=== PATIENT | female | born 1965 | race Caucasian/White ===

== ENCOUNTER → 2019-12-03 15:11 | Outpatient (CLI) | payer OTHER, SELFPAY ==
--- NOTE | ~2019-12-03 | MM_ITS ---
EXAMINATION: MM screening anant BI w asge HISTORY: Screening mammogram, family history of breast cancer in her mother. TECHNIQUE: Craniocaudal and mediolateral oblique 3-D tomosynthesis images were obtained and synthetic 2-D images were generated. CAD analysis was submitted and interpreted. COMPARISON: 06/23/2018, 05/05/2017, 04/09/2016, 04/07/2015 BREAST PARENCHYMAL COMPOSITION: There are scattered areas of fibroglandular density. FINDINGS: There is no evidence of suspicious mass, calcification, or architectural distortion to sugg est malignancy in either breast. There has been no suspicious interval change. IMPRESSION: 1. No mammographic evidence of malignancy. 2. Recommend routine screening mammography in one year. BI-RADS Category 1: Negative Reviewed, dictated and finalized at location A.
== END ==
PROVIDERS: Visit Provider Nurse Practitioner
DX: Z12.31 Encounter for screening mammogram for malignant neoplasm of breast (principal)
CPT/HCPCS: 77063; 77067

== ENCOUNTER → 2020-11-13 11:47 | Outpatient (CLI) | payer OTHER, SELFPAY ==
--- NOTE | ~2020-11-13 | US_ITS ---
EXAMINATION: US transvaginal DATE: 11/13/2020 12:22 INDICATION: Postmenopausal bleeding Comparison:Postmenopausal bleeding. Abnormal uterine bleeding. TECHNIQUE: Multiple endovaginal sonographic images of the pelvis performed. FINDINGS: The uterus measures 7.2 x 3.7 x 4.7 cm. No discrete masses. The endometrial complex measure s 3 mm. The right ovary measures 2.1 x 1.8 x 2.2 cm and the left ovary is not visualized. No free fluid in th e pelvis. There is no free fluid in the pelvis. There are no abnormal masses seen on either side. IMPRESSION: 1. Unremarkable pelvic ultrasound. Reviewed, dictated and finalized at location A.
== END ==
PROVIDERS: Visit Provider Nurse Practitioner
DX: N95.0 Postmenopausal bleeding (principal)
CPT/HCPCS: 76830

== ENCOUNTER → 2020-12-03 16:46 | Outpatient (CLI) | payer OTHER, SELFPAY ==
--- NOTE | ~2020-12-03 | MM_ITS ---
EXAMINATION: MM screening anant BI w sage HISTORY: Screening mammogram TECHNIQUE: Craniocaudal and mediolateral oblique 3-D tomosynthesis images were obtained and synthetic 2-D images were generated. CAD analysis was submitted and interpreted. COMPARISON: 12/03/2019, 06/23/2018, 05/05/2017 bilateral digital screening mammogram examinations BREAST PARENCHYMAL COMPOSITION: There are scattered areas of fibroglandular density. FINDINGS: There is no evidence of suspicious mass, calcification, or architectural distortion to sugg est malignancy in either breast. There has been no suspicious interval change. IMPRESSION: 1. No mammographic evidence of malignancy. 2. Recommend routine screening mammography in one year. BI-RADS Category 1: Negative Reviewed, dictated and finalized at location A.
== END ==
PROVIDERS: Visit Provider Nurse Practitioner
DX: Z12.31 Encounter for screening mammogram for malignant neoplasm of breast (principal)
CPT/HCPCS: 77063; 77067

== ENCOUNTER 2021-06-19 11:19 | Emergency (ER) | payer OTHER, SELFPAY ==
--- NOTE | ~2021-06-19 | CT_ITS ---
EXAMINATION: CT abdomen pelvis w con EXAM DATE: 06/19/2021 13:56 INDICATION: RUQ abdominal pain . TECHNIQUE: Spiral CT of the abdomen and pelvis was performed following intravenous injection of 100 m L Omnipaque 350. Axial, coronal and sagittal images of the abdomen and pelvis were reviewed. The do se-length product (DLP) for this examination was 989.58 mGy-cm. The exposure was tailored according to patient size (auto mA exposure control), and iterative reconstruction (ASIR) was used as additiona l dose reduction technique. There is no prior study for comparison. FINDINGS: There is a right UPJ 5 mm stone, mild obstructive nephropathy. Some enhancement of the urot helium, could indicate upper urinary tract infection. Mildly delayed right-sided nephrogram compared to the contralateral side. Punctate left inferior calyceal stone. The liver, spleen, adrenal glands and pancreas are unremarkable. Gallbladder is unremarkable. No biliary obstruction. The uterus is unremarkable. The bladder is unremarkable. There is no retroperitoneal or pelvic lymphadenopathy. The appendix is normal. The stomach and small bowel are unremarkable. There is expected amount of c olonic stool. No free intraperitoneal gas. The heart is normal in size. There are no pericardial or pleural effusions. The lung bases are unremarkable. There are no osteoblastic or osteolytic les ions identified. IMPRESSION: 1. Right UPJ 5 mm stone, mild obstructive nephropathy and possible upper UTI. 2. Punctate left nephrolithiasis. Reviewed, dictated and finalized at location B. CLINICAL DOCUMENTATION SPECIALIST
[2021-06-19 11:23] VITALS: BP 137/55; PULSE 73; RESP 18; TEMP 36.7; O2SAT 99
[2021-06-19 11:43] LABS: Basophils Percent Auto 0.6 % (0.2-1.2); Eosinophils Absolute Auto 0.1 K/mm3 (0-0.3); Hematocrit 41.5 % (37.0-47.0); Hemoglobin 14.5 g/dL (12.0-15.0); Immature Granulocyte Absolute 0.02 K/mm3 (0.00-0.031); Immature Granulocyte Percent A 0.3 % (0-0.5); Lymphocytes Absolute Auto 2.54 K/mm3 (0.9-3.2); Lymphocytes Percent Auto 36.8 % (18.3-44.2); Mean Corpuscular HGB Conc 34.9 g/dl (32-36); Mean Corpuscular Hemoglobin 30.3 pg (26-34); Mean Corpuscular Volume 86.8 fl (80-100); Mean Platelet Volume 8.8 fl (7.4-10.4); Monocytes Absolute Auto 0.6 K/mm3 (0.1-0.6); Neutrophils Absolute Auto 3.7 K/mm3 (1.3-6.7); Neutrophils Percent Auto 53.3 % (45.5-73.1); Platelet Count Result 228 k/mm3 (150-375); Red Blood Count 4.78 M/mm3 (4.2-5.4); White Blood Count 6.9 K/mm3 (4.5-10.0)
[2021-06-19 11:55] LABS: Alanine Aminotransferase 42 U/L (4-35); Albumin Level 4.4 g/dL (3.5-5.1); Alkaline Phosphatase 119 U/L (38-126); Anion Gap 9 mmol/L (8-16); Aspartate Amino Transferase 37 U/L (14-36); Bilirubin,Total 1.1 mg/dL (0.2-1.3); Blood Urea Nitrogen 12 mg/dL (7-17); Carbon Dioxide 26 mmol/L (22-30); Chloride 102 mmol/L (98-107); Estimated CRCL calculation 81 ml/min; Estimated Glomerular Filt Rate > 60; Glucose 128 mg/dL (65-110); Lipase 41 U/L (23-300); Potassium 3.9 mmol/L (3.4-5.0); Sodium 137 mmol/L (137-145)
--- NOTE | 2021-06-19 12:00 | ED.ABDPAIN ---
HPI - Abdominal Pain General Chief Complaint: Abdominal Pain Stated Complaint: RLQ pain that wraps around to back Source: patient, family and RN notes reviewed Limitations: no limitations History of Present Illness HPI narrative: 56-year-old female presents to the emergency department for evaluation of right upper quadrant and right lower quadrant with back pain. Patient states symptoms started this morning. Patient does report associated nausea. Patient denies any associated chest pain or shortness of breath. Patient denies any prior history of gallbladder disease. Patient denies any cardiac history. Patient denies any previous history of kidney stones. Related Data Allergies Allergy/AdvReac Type Severity Reaction Status Date / Time No Known Allergies Allergy Unverified 02/22/19 10:26 Review of Systems Review of Systems: CONSTITUTIONAL: Denies fever, chills, or sweats. EYES: Denies visual changes, redness, or discharge. ENT: Denies rhinorrhea, congestion, sore throat, or otalgia. CARDIOVASCULAR: Denies chest pain, palpitations, or edema. RESPIRATORY: Denies cough or dyspnea. GASTROINTESTINAL: Right-sided abdominal pain that radiates to right flank. Patient does report associated nausea GENITOURINARY: Hematuria SKIN: Denies rash or itching. MUSCULOSKELETAL: Right flank pain Exam Narrative: APPEARANCE: Restless due to pain HEAD: normocephalic, atraumatic. EYES: PERRLA/EOMI, conjunctivae clear. NECK: Supple. No adenopathy, no masses. RESPIRATORY: Airway patent, respirations nonlabored. Clear to auscultation bilaterally, no rales, rhonchi, wheezing. CARDIOVASCULAR: Regular rate and rhythm without murmurs rubs or gallops. ABDOMINAL: Some right-sided abdominal pain, right CVA tenderness to palpation, normal bowel sounds, otherwise benign abdomen MUSCULOSKELETAL: Moves all extremities. Strength/ROM intact, No edema, No calf tenderness. SKIN: Warm, dry. Normal Color Course Course Emergency Course: Medications were ordered to help provide the patient some comfort from her pain and nausea. On reevaluation patient states that she feels significantly improved. Patient is no longer in any distress. Patient was updated on the results of her CT scan. Patient was also updated on the results of her labs and on the discussion with urology. Patient was comfortable with the plan for discharge to home and close follow-up with urology. Consultations Consultation #1: I discussed the case with Dr. Bacon for urology and he was comfortable discharging the patient to home. He felt with the patient having no leukocytosis and a normal UA was comforting enough that she does not have a infected stone. Narcotic pain medication along with Flomax. Also advised against any NSAIDs. Patient will have follow-up in his office early next week. I discussed this with the patient and patient is currently resting comfortably. Patient and are both comfortable with the plan for discharged home. They were educated on reasons to return to the emergency room. Vital Signs Vital signs: Vital Signs Temperature 98.1 F 06/19/21 11:23 Pulse Rate 73 06/19/21 11:23 Respiratory Rate 18 06/19/21 11:23 Blood Pressure 137/55 L 06/19/21 11:23 Pulse Oximetry 99 06/19/21 11:23 Temperature 98.1 F 06/19/21 11:23 Pulse Rate 83 06/19/21 16:02 Respiratory Rate 16 06/19/21 16:02 Blood Pressure 146/80 H 06/19/21 16:02 Pulse Oximetry 97 06/19/21 16:02 MDM - Abdominal Pain Differential Diagnosis Differential diagnosis: Likely abdominal pain, calculus of kidney and diverticulitis Lab Data Attestation: I reviewed the patient's lab results. Result diagrams: 06/19/21 11:36 06/19/21 11:36 Labs: Lab Results 06/19/21 06/19/21 06/19/21 Range/Units 11:36 11:36 12:27 WBC 6.9 (4.5-10.0) K/mm3 RBC 4.78 (4.2-5.4) M/mm3 Hgb 14.5 (12.0-15.0) g/dL Hct 41.5 (37.0-47.0) % MCV 86.8 (80-100) f
[2021-06-19] MEDS: SODIUM CHLORIDE 0.9% IV 1,000 ML 999 ML IV CONT (12:15)
[2021-06-19] MEDS: HYDROmorphone HCL INJ (*CRX) 1 MG/ML SYR 0.5 MG IV PUSH (12:15)
[2021-06-19] MEDS: ONDANSETRON INJ 4 MG/2 ML VIAL IV PUSH (12:15)
[2021-06-19 12:47] LABS: Add Urine Microscopic? YES; Appearance Urine Cloudy (Clear); Bilirubin Urine Negative (Negative); Blood Urine 3+ (Negative); Color Urine Amber (Yellow); Glucose Urine UA Negative (Negative); Ketones Urine Trace mg/dL (Negative); Leukocyte Esterase Ur Negative LEU/UL (Negative); Mucus Urine Heavy /lpf; Nitrate Urine Negative (Negative); Protein Urine 1+ mg/dL (Negative); RBC Urine >75 /hpf (0-2); Specific Grav Ur 1.017 (1.001-1.035); Squamous Epithelial Cell Urine Occasional /hpf (Few); Urobilinogen Urine Negative mg/dL (<2.0)
[2021-06-19 14:18] VITALS: BP 160/85; PULSE 90; RESP 18; O2SAT 100
[2021-06-19 16:02] VITALS: BP 146/80; PULSE 83; RESP 16; O2SAT 97
--- NOTE | 2021-06-29 19:12 | PC.NURSE ---
LATE ENTRY This note is being entered to document information to the patient's record. The following information was omitted on [06/19/21], by [Charlette Texieira]. Rocephin administered and finished infusing at 1519.
== END 2021-06-19 16:06 | disposition home or self-care (01) ==
PROVIDERS: Emergency Provider Emergency Medicine
DX: N13.8 Other obstructive and reflux uropathy (principal); N20.2 Calculus of kidney with calculus of ureter
CPT/HCPCS: 36415; 51701; 74177; 80053; 81001; 81025; 83690; 85025; 87086; 96361; 96365; 96375; 99284; J0696; J1170; J2405; J7030; Q9967

== ENCOUNTER 2021-06-24 12:07 | Outpatient (CLI) | payer OTHER, SELFPAY ==
--- NOTE | ~2021-06-24 | XR_ITS ---
XR abdomen/kub 1V 06/24/2021 12:59 INDICATION: Right ureteral stone TECHNIQUE: KUB COMPARISON: CT dated 06/19/2021 FINDINGS: Bowel gas pattern is normal. There is no evidence of free air, mass, organomegaly, ascites or obstruction. There are stones in the right abdomen at the L3 level, presumably in the ureter. The bones appear intact. IMPRESSION: 1: Persistent right proximal ureteral stones at the L3 level.. Reviewed, dictated and finalized at location B. TIENT NURSING AIDE
== END 2021-06-24 12:08 | disposition home or self-care (01) ==
PROVIDERS: Visit Provider Nurse Practitioner Adult Health
DX: N20.1 Calculus of ureter (principal)
CPT/HCPCS: 74018

== ENCOUNTER 2021-06-28 23:03 | Emergency (ER) | payer OTHER, SELFPAY ==
--- NOTE | ~2021-06-28 | CT_ITS ---
EXAMINATION: CT abdomen pelvis wo con DATE: 06/29/2021 00:40 INDICATION: Abdominal pain. Right ureteral stone. TECHNIQUE: Computed tomography (CT) of the abdomen and pelvis was performed without intravenous contr ast. Automated exposure control and iterative reconstruction technique were employed. The dose-length product was 454.87 mGy-cm. COMPARISON: CT abdomen and pelvis 06/19/2021 FINDINGS: The visualized portions of the lung bases demonstrate mild atelectasis. No pleural effusion . The heart size is normal. No pericardial effusion. There is a small sliding hiatal hernia. There is diffuse hepatic steatosis. The gallbladder, spleen, pancreas, and adrenal glands are normal. There i s mild right hydronephrosis and hydroureter. There is a 4 mm stone at right ureterovesicular junction . There is a 2 mm stone in left kidney. There are no dilated loops of bowel. The appendix is normal. There are no pathologically enlarged lymph nodes. There is no free intraperitoneal fluid. There is se nighat lumbar spondylosis. IMPRESSION: 1. 4 mm stone at right ureterovesicular junction with mild right hydronephrosis and hydroureter. 2. 2 mm nonobstructing stone in left kidney. Reviewed, dictated and finalized at location A. TOP LINER HELPER IMPRESSION: 1. 4 mm stone at right ureterovesicular junction with mild right hydronephrosi s and hydroureter. 2. 2 mm nonobstructing stone in left kidney.
[2021-06-28 23:05] VITALS: BP 153/81; PULSE 98; RESP 20; TEMP 36.2; O2SAT 98
--- NOTE | 2021-06-28 23:51 | ED.ABDPAIN ---
HPI - Abdominal Pain General Chief Complaint: Abdominal Pain Stated Complaint: Right kidney stone, vomiting. Time Seen by Provider: 06/28/21 23:33 Source: patient History of Present Illness HPI narrative: Patient presents with worsening right flank pain. Patient ports she was diagnosed few days ago with a right stone being monitored outpatient by urology and was to have procedural intervention later this week. Over the past day or so she has been having increasing pain her pain initially was on her right upper back is now into her right groin. She reports she is also had nausea vomiting and not been able keep anything down she called the urology clinic and was referred to the ER for further evaluation. Pain is crampy, constant, no clear aggravating or alleviating factors. Related Data Allergies Allergy/AdvReac Type Severity Reaction Status Date / Time No Known Allergies Allergy Verified 06/28/21 23:08 Review of Systems Review of Systems: CONSTITUTIONAL: Denies fever, chills, or sweats. EYES: Denies visual changes, redness, or discharge. ENT: Denies rhinorrhea, congestion, sore throat, or otalgia. CARDIOVASCULAR: Denies chest pain, palpitations, or edema. RESPIRATORY: Denies cough or dyspnea. GASTROINTESTINAL: Abdominal pain nausea and vomiting GENITOURINARY: Denies dysuria or hematuria. SKIN: Denies rash or itching. MUSCULOSKELETAL: Denies back pain, joint pain, or myalgia. NEUROLOGIC: Denies headache, numbness, dizziness, or weakness. PSYCHIATRIC: Denies anxiety or depression. All systems reviewed & are unremarkable except as noted in HPI and below PMFSH Past Medical History Medical History (Updated 06/29/21 @ 04:19 by Davonte Anderson MD) Ureteral calculus, right Social History Social History (Updated 06/28/21 @ 23:53 by Davonte Anderson MD) Living arrangements: with family Course Reevaluation(s) Reevaluation #1: Pending CT results Date: 06/29/21 Time: 01:11 Reevaluation #2: CT results return there is a 0.4 cm stone at the right UV J. Case cussed with Dr. Lipscomb traffic monitor specialist stone is high likely to pass on its own recommend attempting Toradol for pain control. Symptoms are able to be controlled she is appropriate for outpatient therapies and follow-up in their clinic as previously scheduled if not patient can be admitted for pain control. Patient is comfortable with the plan Date: 06/29/21 Time: 03:06 Reevaluation #3: Patient reports feeling much improved and feels she can manage her symptoms at home. Date: 06/29/21 Time: 04:17 Vital Signs Vital signs: Vital Signs Temperature 36.2 C L 06/28/21 23:05 Pulse Rate 98 06/28/21 23:05 Respiratory Rate 20 06/28/21 23:05 Blood Pressure 153/81 H 06/28/21 23:05 Pulse Oximetry 98 06/28/21 23:05 Temperature 36.2 C L 06/28/21 23:05 Pulse Rate 103 H 06/29/21 04:32 Respiratory Rate 14 06/29/21 04:32 Blood Pressure 122/57 L 06/29/21 04:32 Pulse Oximetry 98 06/29/21 04:32 MDM - Abdominal Pain MDM Narrative Medical decision making narrative: H&P as above, vss, pt looks clinically well, exam reassuring, labs clinically unremarkable, img with progression of right ureteral stone, additional labs/img considered, symptomatic relief available as needed, patient treated with fluids Toradol morphine and Zofran on reevaluation pt continues to looks clinically well and reports feeling much improved. Suspect continued pain is from ureteral stone which is progressing and likely to pass soon Case was also discussed with urology, dns infected stone acute kidney injury perforation sepsis. plan to tx/monitor as op w/ urology f/u findings/plan discussed with pt, pt agree/comfortable with plan, return precautions given Lab Data Labs: Lab Results 06/29/21 06/29/21 06/29/21 Range/Units 00:10 00:10 00:49 PT 12.1 (11.1-14.7) Seconds INR 0.9 Lipase 40 (23-300) U/L Urine Color Straw (Yellow) Urine Appearance Clear (Clear) Urine pH
[2021-06-29] MEDS: MORPHINE SULFATE (*CRX) 4 MG/ML INJ IV PUSH ×2 (00:15→02:59)
[2021-06-29] MEDS: ONDANSETRON INJ 4 MG/2 ML VIAL IV PUSH ×2 (00:15→03:23)
[2021-06-29] MEDS: SODIUM CHLORIDE 0.9% IV 1,000 ML 999 ML IV CONT ×2 (00:15→03:23)
[2021-06-29 00:27] LABS: Lipase 40 U/L (23-300)
[2021-06-29 00:28] LABS: INR 0.9; Prothrombin Time 12.1 Seconds (11.1-14.7)
[2021-06-29 00:42] VITALS: BP 148/74; PULSE 85; RESP 18; O2SAT 96
[2021-06-29 00:58] LABS: Add Urine Microscopic? YES; Appearance Urine Clear (Clear); Bacteria Urine Trace /hpf; Bilirubin Urine Negative (Negative); Blood Urine 2+ (Negative); Color Urine Straw (Yellow); Glucose Urine UA Negative (Negative); Ketones Urine 1+ mg/dL (Negative); Leukocyte Esterase Ur Negative LEU/UL (Negative); Nitrate Urine Negative (Negative); Protein Urine Negative (Negative); RBC Urine 0-2 /hpf (0-2); Squamous Epithelial Cell Urine Rare /hpf (Few); Urobilinogen Urine Negative mg/dL (<2.0); WBC Urine 0-3 /hpf
[2021-06-29 01:05] LABS: Specific Grav Ur 1.003 (1.001-1.035)
--- NOTE | 2021-06-29 02:12 | PC.NURSE ---
Report given to Roly LEWIS
[2021-06-29 02:23] VITALS: BP 135/59; PULSE 102; RESP 16; O2SAT 94
[2021-06-29] MEDS: KETOROLAC 15 MG/ML VIAL (*BKC) IV PUSH (03:23)
[2021-06-29 04:32] VITALS: BP 122/57; PULSE 103; RESP 14; O2SAT 98
== END 2021-06-29 04:33 | disposition home or self-care (01) ==
PROVIDERS: Emergency Provider Emergency Medicine
DX: N13.2 Hydronephrosis with renal and ureteral calculous obstruction (principal)
CPT/HCPCS: 36415; 74176; 81001; 83690; 85610; 96361; 96374; 96375; 96376; 99284; J1885; J2270; J2405; J7030

== ENCOUNTER 2021-07-03 01:15 | Day surgery (SDC) | payer OTHER, SELFPAY ==
[2021-06-30 09:39] VITALS: BMI 32.1
--- NOTE | 2021-06-30 09:48 | PC.NURSE ---
Addendum entered by Carolin Mireles RN 06/30/21 09:55: PT DOES NOT HAVE TO DISCONTINUE IBUPROFEN. Original Note: Report to the Outpatient Waiting Room, entrance under the green pavilion located off [facility], at time 0930 on date 07/03/21. OR Time: 1130. - You will be asked a series of questions to screen for COVID 19 for your protection. - A mask is required within the hospital. - No visitors are allowed at this time. Preoperative COVID Testing Requirements: No COVID Test needed if: (proof is required; if not received patient will have Rapid Test prior to entry) - Patient has received COVID Vaccine at least 14 days prior to procedure date or - Patient has positive COVID test result within last 90 days of surgery date. COVID Test needed if above criteria is not met Patients may have clear liquids (water, carbonated beverages, clear teas, apple juice) until 3 hours prior to surgery with a maximum of 20 ounces. - No food from midnight until time of surgery Take the following medications with a SIP of water the morning of surgery: ALPRAZOLAM, ESTRADIOL, PROGESTERONE, VENLAFAXINE Medications to discontinue per physician: IBUPROFEN Date to take last dose: NO MORE UNTIL AFTER SURGERY Please no make-up, nail wolof, hairspray, perfume, deodorant, or body powder the day of surgery. No jewelry (including any body piercings) or valuables the day of surgery, leave them at home. Please take a shower or bath the night before, or the morning of, surgery with an antibacterial soap. Wear comfortable, loose fitting clothing. - Jewelry must be removed prior to entering the operating room. Rings and piercings that are not removed may be cut off. - The hospital will not accept responsibility for valuables. - Please leave all valuables, including medications, at home the day of surgery. If you are going home after surgery, a licensed team otr truck driver must drive you home. - NO public transportation without another adult. - We recommend that an adult stay with you for 24 hours following discharge. - We also recommend that you do not drive, make important decision, drink alcoholic beverages, or take any drugs that were not prescribed by your health care provider for at least 24 hours after your discharge time. Follow any additional instructions given to you from your surgeon. Telephone instructions given to LESIA STALLMAN and asked if any additional questions and then verbalized understanding. Patient advised to call surgeon office or pre surgery nurse liaison [phone] if any additional questions.
--- NOTE | 2021-07-02 15:14 | P.PNAN_ITS ---
Anes - Eval Pre Procedure Procedure: Operation Date: 07/03/21 12:30 Proposed Procedures p Cystoscopy, Right Ureteroscopy, Right Retrograde Pyelogram, Right Stone Extraction, Possible Right Stent Placement, - Keith Wang MD s Possible Holmium Laser Procedure - Keith Wang MD Date/Time: 07/02/21 15:14 Pre Op Diagnosis: right ureteral stone Patient Data Age: 56 Gender: F Height: 1.7 m Weight: 93 kg Allergies Allergy/AdvReac Type Severity Reaction Status Date / Time No Known Allergies Allergy Verified 06/30/21 09:35 Home Medications Medication Instructions Recorded Confirmed Type tamsulosin [Flomax] 0.4 mg PO DAILY #5 cap 06/19/21 06/30/21 Rx ibuprofen 800 mg PO TID PRN #30 tablet 06/29/21 06/30/21 Rx ondansetron 4 mg PO Q6H PRN #20 tablet 06/29/21 06/30/21 Rx alprazolam 0.5 mg PO BID PRN 06/30/21 06/30/21 History estradiol 1 mg PO DAILY 06/30/21 06/30/21 History progesterone micronized 100 mg PO DAILY 06/30/21 06/30/21 History semaglutide [Ozempic] 0.5 mg SUBCUT WEEKLY 06/30/21 06/30/21 History venlafaxine [Effexor XR] 75 mg PO DAILY 06/30/21 06/30/21 History Patient hx anesthesia problems: none Family hx anesthesia problems: none Results Review: All pre-operative results and documents have been reviewed as part of the pre-operative evaluation. [facility] Past Medical History Medical History Anxiety Back pain Eczema Ureteral calculus, right Social History Social History (Updated 06/28/21 @ 23:53 by Davonte Anderson MD) Smoking packs per day: 0.75 Smoking cigarettes per day: 15.0 Years smoked: 20 Smoking pack-years: 15.00 Smoking status: Former smoker Tobacco type: cigarettes Smoking end date: 05/30/98 Alcohol intake: current Alcohol use details: 2/MONTH Substance use: never Substance use type: does not use Living arrangements: with family Spiritual care concerns: No Exam Day of Procedure 07/02/21 15:14
[2021-07-03] VITALS (8 sets, daily range): BP systolic 118–140; BP diastolic 62–81; PULSE 61–94; RESP 14–20; TEMP 36.2; O2SAT 94–99
--- NOTE | ~2021-07-03 | XR_ITS ---
XR retrograde pyelo w/stent RT DATE: 07/03/2021 14:09 INDICATION: Right-sided stones TECHNIQUE: 10 spot C-arm images of the abdomen and pelvis 20.6 seconds fluoroscopy time 0.90656 mGym2 COMPARISON: 06/29/[address] abdomen pelvis: 4 m stone at right ureterovesical junction with mild right hydroureteronephrosis 06/24/2021 KUB FINDINGS: The right ureter was catheterized via cystoscopy with placement of a guidewire and subseque nt passage of a pigtail internal urinary stent. Mild right hydronephrosis is noted (blunting of renal calyces). IMPRESSION: Right internal urinary stent placement Reviewed, dictated and finalized at Location A. Reviewed, dictated and finalized at location B. CONCURRENT REVIEW
--- NOTE | 2021-07-03 11:19 | ECG_ITS ---
Measurements Intervals Lynn Rate: 80 P: 47 NE: 144 QRS: 23 QRSD: 94 T: 54 QT: 364 QTc: 422 Interpretive Statements SINUS RHYTHM NORMAL ECG Electronically Signed On 07-03-2021 12:11:03 IRON HANDLER by Logan Gray D.O.
[2021-07-03] MEDS: LACTATED RINGERS 1,000 ML 30 ML IV CONT (12:10)
[2021-07-03 12:20] LABS: Glucose Point of Care 106 mg/dl (65-105)
--- NOTE | 2021-07-03 13:01 | WPDANESEFPP ---
Anes - Eval Final PreProcedure Day of Procedure 07/03/21 13:01 Patient weight: obese Heart: regular rate and rhythm Lungs: clear to auscultation Airway: Mallampati scale class II Neurological: alert and oriented Last oral intake: >/= 8 hours ASA classification: III Emergent: no Anesthetic plan: proceed Anesthesia type and monitoring: general LMA and standard monitoring Results Review: All pre-operative results and documents have been reviewed as part of the pre-operative evaluation. Informed Consent: The patient's anesthetic plan and its attendant risks and benefits were discussed with the patient/family/POA. Questions were solicited and answers provided to the satisfaction of the patient/family/POA.
--- NOTE | 2021-07-03 13:15 | WPDHPUPDATE1 ---
History and Physical Update Update Date/Time: 07/03/21 13:15 History and Physical has been reviewed, including an updated exam of the patient. There are NO changes in the patient's condition. Risks, benefits, and alternatives have been discussed and questions answered. Patient agrees to proceed with procedure. Proceed with cystoscopy, right retrograde pyelogram, right ureteroscopy with stone extraction, possible laser and stent placement
[2021-07-03] MEDS: LIDOCAINE HCL 2% GEL UROJET 10 ML PKG MUCOUS MEM (13:46)
[2021-07-03] MEDS: ceFAZolin 2 GM/D5W 50 ML 2 GM/50 ML BAG IVPB (13:46)
--- NOTE | 2021-07-03 14:06 | W.PM.PROC2 ---
Procedure Note - Detailed Date of Procedure 07/03/21 Pre-op Diagnosis right ureteral stone Post-op Diagnosis same Procedure Performed Cystoscopy, right retrograde pyelogram, right ureteroscopy with stone extraction, ureteral stent placement 4.8 American contour Surgeon Keith Wang MD Anesthesia general Description of Procedure Patient is taken to the operative suite correctly identified. Once anesthesia was obtained she was placed in a dorsal lithotomy position and prepped and draped usual sterile fashion. Twenty-two American scope inserted in the bladder. There is no tumors noted. Right ureteral orifice was cannulated with a guidewire. He was dilated with an 8/10 dilator. Rigid ureteral scope was then inserted. The stone was visualized. Using an escape basket we retrieved the stone and sent it for analysis. There was actually a 2nd stone adjacent to it which was approximately 2-3 mm in addition to the 4-5 mm stone. Pyelogram was then performed to confirm placement of the stent. 4.8 American contour stent was placed with the proximal end coiled in the renal pelvis and the distal in the bladder. 2% viscous lidocaine was inserted into the bladder. Patient is taken recovery stable condition. She will follow up in a week's time for stent removal. Drains Yes Packing No Pathology yes Complications No immediate complications Condition stable Disposition PACU
--- NOTE | 2021-07-03 14:40 | SUR.PHASEI ---
Patient denies being diabetic so RN didn't check BG in recovery.
[2021-07-03] MEDS: ACETAMINOPHEN 500 MG TABLET 1000 MG PO (15:31)
== END 2021-07-03 15:54 | disposition home or self-care (01) ==
PROVIDERS: Visit Provider Urology
PROC: (CPT 52352; principal; 2021-07-03 12:30)
DX: N13.2 Hydronephrosis with renal and ureteral calculous obstruction (principal); E66.9 Obesity, unspecified; Z68.32 Body mass index [BMI] 32.0-32.9, adult; F41.9 Anxiety disorder, unspecified; Z87.891 Personal history of nicotine dependence; Z79.899 Other long term (current) drug therapy
CPT/HCPCS: 52332; 52352; 74420; 82365; 82948; 88300; 93005; A9270; C1769; C2617; J0690; J2250; J2405; J2704; J3010; J7120; Q9966

== ENCOUNTER → 2022-03-01 15:48 | Outpatient (CLI) | payer OTHER, SELFPAY ==
--- NOTE | ~2022-03-01 | MM_ITS ---
EXAMINATION: MM screening anant BI w sage HISTORY: Screening mammogram, family history of breast cancer in her mother. TECHNIQUE: Craniocaudal and mediolateral oblique 3-D tomosynthesis images were obtained and synthetic 2-D images were generated. CAD analysis was submitted and interpreted. COMPARISON: 12/03/2020, 12/03/2019, 06/23/2018 BREAST PARENCHYMAL COMPOSITION: There are scattered areas of fibroglandular density. FINDINGS: There is no suspicious mass, calcification, or architectural distortion to suggest malignan cy in either breast. There has been no suspicious interval change. IMPRESSION: 1. No mammographic evidence of malignancy. 2. Recommend routine screening mammography in one year. BI-RADS Category 1: Negative Reviewed, dictated and finalized at location A.
--- NOTE | ~2022-03-01 | DEXA_ITS ---
Bone Density Report Name: DUC SUE Age: 56 Sex: Female Ethnicity: White Date of : 1965 Indication: screening for osteoporosis; Referring Provider: Jese, Antonia Study: Bone densitometry was performed. Exam Date: March 01, 2022 Accession number: [id number] Bone Density: Region BMD T-score Z-score Classification AP Spine (L1-L4) 1.134 0.8 2.0 Normal Femoral Neck (Left) 0.820 -0.3 0.9 Normal Total Hip (Left) 0.947 0.0 0.8 Normal Femoral Neck (Right) 0.785 -0.6 0.6 Normal Total Hip (Right) 0.889 -0.4 0.3 Normal Total Hip Mean 0.918 -0.2 0.6 Normal World Health Organization criteria for BMD impression classify patients as: Normal (T-score at or above -1.0), Osteopenia (T-score between -1.0 and -2.5), or Osteoporosis (T-score at or below -2.5). 10-year Fracture Risk: FRAX not reported because: Premenopausal woman All T-scores for Spine Total, Hip Total, Femoral Neck at or above -1.0 Treated for osteoporosis Clinical Information Provided by Patient: Is being treated for osteoporosis Has used the following medications: HRT (i.e. estrogen/hormone therapy), Vitamin D Patient maximum height was 67.0 Drinks caffeinated beverages Onset of menses at age 16 Premenopausal Number of children 0 Impression: The patient's bone mass is within expected range for age, gender and ethnicity. Discussion: It is important to ask patients whether they are taking their medications and to encourage continued and appropriate compliance with their osteoporosis therapies to reduce fracture risk. It is also important to review their risk factors and encourage appropriate calcium and vitamin D intakes, exercise, fall prevention and other lifestyle measures. Follow-Up: Consider a repeat BMD and Vertebral Fracture Assessment (VFA) exam in 2 years or sooner if medically necessary, to reassess this patient's status. Reported by: [facility] on 03/01/2022 4:29:00 PM. Reviewed, dictated and finalized at location AShree YBARRA
== END ==
PROVIDERS: Visit Provider Nurse Practitioner
DX: Z12.31 Encounter for screening mammogram for malignant neoplasm of breast (principal); Z13.820 Encounter for screening for osteoporosis
CPT/HCPCS: 77063; 77067; 77080

== ENCOUNTER → 2022-09-22 12:38 | Outpatient (CLI) | payer OTHER, SELFPAY ==
--- NOTE | ~2022-09-22 | XR_ITS ---
EXAMINATION: XR abdomen/kub 1V INDICATION: Left renal stone TECHNIQUE: Supine views of the abdomen were obtained on 2 radiographs. COMPARISON: 06/24/2021 FINDINGS: Bowel contents project over the kidneys limiting sensitivity for renal stones. There appear s to be a punctate stone of the left kidney lower pole. No definite additional urolithiasis is suspec bassem. The bowel gas pattern is normal. The visualized lung bases are clear. There is mild osteoarthrit is of the hips. IMPRESSION: 1. Possible punctate left nephrolithiasis. Reviewed, dictated and finalized at location B.
--- NOTE | ~2022-09-22 | US_ITS ---
EXAMINATION: US retroperitoneal comp DATE: 09/22/2022 13:05 INDICATION: History of kidney stones TECHNIQUE: Multiple grayscale and Doppler ultrasound images of the kidneys were obtained. COMPARISON: None. FINDINGS: The right kidney measures 10.6 x 4.8 x 4.6 cm. The left kidney measures 9.0 x 5.1 x 4.6 cm. The kidneys demonstrate normal parenchymal echogenicity. There is no hydronephrosis. The bladder is normal. IMPRESSION: 1. Normal kidneys without hydronephrosis. Reviewed, dictated and finalized at location B.
== END ==
PROVIDERS: PCP Nurse Practitioner Adult Health; Visit Provider Nurse Practitioner Adult Health
DX: N20.0 Calculus of kidney (principal)
CPT/HCPCS: 74018; 76770

== ENCOUNTER → 2022-11-26 12:47 | Outpatient (CLI) | payer OTHER, SELFPAY ==
--- NOTE | ~2022-11-26 | US_ITS ---
EXAMINATION: US transvaginal DATE: 11/26/2022 13:15 INDICATION: Postmenopausal bleeding TECHNIQUE: Multiple endovaginal sonographic images of the pelvis were obtained. COMPARISON: 11/13/2020 FINDINGS: The uterus measures 6.4 x 2.7 x 3.7 cm. The endometrial complex measures 3 mm. The ovaries are not visualized however no adnexal abnormality is seen. There is no free fluid in the pelvis. IMPRESSION: 1. No sonographic correlate for the patient's symptoms. Reviewed, dictated and finalized at location B.
== END ==
PROVIDERS: PCP Nurse Practitioner; Visit Provider Nurse Practitioner
DX: N95.0 Postmenopausal bleeding (principal)
CPT/HCPCS: 76830

== ENCOUNTER → 2023-05-09 13:52 | Outpatient (CLI) | payer OTHER, SELFPAY ==
--- NOTE | ~2023-05-09 | MM_ITS ---
EXAMINATION: MM screening anant BI w sage HISTORY: Screening TECHNIQUE: Craniocaudal and mediolateral oblique 3-D tomosynthesis images were obtained and synthetic 2-D images were generated. CAD analysis was submitted and interpreted. COMPARISON: Comparison to multiple prior studies sequentially, with oldest reviewed study dated 03/30. BREAST PARENCHYMAL COMPOSITION: There are scattered areas of fibroglandular density. FINDINGS: There is focal asymmetry in the central aspect of the right breast. The left breast is stab le without evidence for malignancy. IMPRESSION: 1. Focal right breast asymmetry. 2. Additional spot compression and mediolateral views with possible follow-up breast ultrasound recom mended. BI-RADS Category 0: Incomplete: Needs additional imaging evaluation. Reviewed, dictated and finalized at location A. CAULKER IMPRESSION: 1. Focal right breast asymmetry. 2. Additional spot compression and mediolateral views with possible follow-up b reast ultrasound recommended. BI-RADS Category 0: Incomplete: Needs additional imaging evaluation.
== END ==
PROVIDERS: PCP Obstetrics & Gynecology Gynecology; Visit Provider Obstetrics & Gynecology Gynecology
DX: Z12.31 Encounter for screening mammogram for malignant neoplasm of breast (principal); R92.8 Other abnormal and inconclusive findings on diagnostic imaging of breast
CPT/HCPCS: 77063; 77067

== ENCOUNTER → 2023-06-06 07:42 | Outpatient (CLI) | payer OTHER, SELFPAY ==
--- NOTE | ~2023-06-06 | MMUS_ITS ---
EXAMINATION: MM diagnostic anant RT w sage, US breast RT limited HISTORY: Possible right breast mass on screening mammogram TECHNIQUE: Additional 3-D tomosynthesis images of the right breast were performed and synthetic 2-D i mages were generated. CAD analysis was submitted and interpreted. High resolution limited right breas t ultrasound was performed. COMPARISON: 05/09/2023, 03/01/2022, 12/03/2020 FINDINGS: MAMMOGRAPHIC FINDINGS: There is a 5 mm round, circumscribed, low density mass in the middle/posterior third of the breast at the 12:00 location, 8 cm from the nipple. No suspicious calcification or architectural distortion ar e identified. ULTRASOUND: There is a 5 mm cyst at the 12:00 location, 8 cm from the nipple corresponding to the mammographic fi nding in question. No suspicious cystic or solid mass is identified. IMPRESSION: 1. No mammographic or sonographic evidence of malignancy. 2. Recommend routine screening mammography in one year. BI-RADS Category 2: Benign finding(s). Reviewed, dictated and finalized at location A. PMENT OPERATING ENGINEER IMPRESSION: 1. No mammographic or sonographic evidence of malignancy. 2. Recommend routine screening mammography in one year. BI-RADS Category 2: Benign finding(s).
== END ==
PROVIDERS: PCP Obstetrics & Gynecology Gynecology; Visit Provider Obstetrics & Gynecology Gynecology
DX: R92.8 Other abnormal and inconclusive findings on diagnostic imaging of breast (principal)
CPT/HCPCS: 76642; 77061; 77065; G0279

== ENCOUNTER 2023-10-19 15:46 | Outpatient (CLI) | payer OTHER, SELFPAY ==
--- NOTE | ~2023-10-19 | US_ITS ---
EXAMINATION: US retroperitoneal comp DATE: 10/19/2023 16:09 INDICATION: Left renal stone TECHNIQUE: Multiple ultrasound grayscale images of the kidneys were obtained. COMPARISON: 09/22/2022 FINDINGS: The right kidney measures 11.2 x 4.9 x 6.1 cm. The left kidney measures 12.0 x 5.6 x 6.9 cm. The kidn eys demonstrate normal echogenicity. There is no hydronephrosis in either kidney. No stones identifi ed. The bladder is normal. IMPRESSION: 1. Normal kidneys without hydronephrosis. Reviewed, dictated and finalized at location A.
--- NOTE | ~2023-10-19 | XR_ITS ---
EXAMINATION: XR abdomen/kub 1V DATE: 10/19/2023 16:15 INDICATION: Left renal stone TECHNIQUE: A supine view of the abdomen on 2 radiographs was obtained. COMPARISON: 09/22/2022 FINDINGS: Again seen is a punctate density projecting over the lower pole of the left kidney suspicious for a 1 mm renal stone. No other evident urolithiasis. Normal bowel gas pattern. Visualized mid to lower jackson gs are clear. Heart size is normal. Mild lumbar levocurvature with mild spondylosis. Mild osteoarthri tis at the bilateral hips and sacroiliac joints. IMPRESSION: 1. Unchanged 1 mm stone at the lower pole the left kidney. Reviewed, dictated and finalized at location A.
== END 2023-10-19 15:47 ==
PROVIDERS: PCP Nurse Practitioner Family; Visit Provider Nurse Practitioner Family
DX: N20.0 Calculus of kidney (principal)
CPT/HCPCS: 74018; 76770

== ENCOUNTER 2024-04-25 11:14 | Outpatient (CLI) | payer OTHER, SELFPAY ==
--- NOTE | ~2024-04-25 | US_ITS ---
US transvaginal Ordering provider: Genesis Barry MD History: . POST MENOPAUSAL BLEEDING . Comparison: None. Technique: Transabdominal and endovaginal ultrasound of the pelvis (Doppler ultrasound interrogation techniques used as needed for this exam.) FINDINGS: CERVIX: Normal. UTERUS: Measures 7.1x 2.8x 4.2 cm in length which is within normal limits and is anteverted. No myom etrial masses. ENDOMETRIUM: Normal in thickness measuring 3 mm. (Note: the premenopausal endometrium may measure up to 16 mm when in the secretory phase.) No endometrial masses, cysts or fluid. CUL DE SAC: No free fluid. RIGHT OVARY: Not visualized. LEFT OVARY: Not visualized. ADNEXA: Normal. No mass. IMPRESSION: normal pelvic ultrasound. Reviewed, dictated and finalized at location A. NG MACHINE OPERATOR IMPRESSION: normal pelvic ultrasound.
== END 2024-04-25 11:15 | disposition home or self-care (01) ==
LOC: MICIMG 11:14
PROVIDERS: PCP Obstetrics & Gynecology Gynecology; Visit Provider Obstetrics & Gynecology Gynecology
DX: N95.0 Postmenopausal bleeding (principal)
CPT/HCPCS: 76830

== ENCOUNTER 2024-07-11 12:42 | Outpatient (CLI) | payer OTHER, SELFPAY ==
--- NOTE | ~2024-07-11 | MM_ITS ---
EXAMINATION: MM screening anant BI w sage HISTORY: Screening TECHNIQUE: Craniocaudal and mediolateral oblique 3-D tomosynthesis images were obtained and synthetic 2-D images were generated. CAD analysis was submitted and interpreted. COMPARISON: Comparison to multiple prior studies sequentially, with oldest reviewed study dated 06/23. BREAST PARENCHYMAL COMPOSITION: Not dense: There are scattered areas of fibroglandular density. FINDINGS: There is no evidence of suspicious mass, calcification, or architectural distortion to sugg est malignancy in either breast. There has been no suspicious interval change. IMPRESSION: 1. No mammographic evidence of malignancy. 2. Recommend routine screening mammography in one year. BI-RADS Category 1: Negative Reviewed, dictated and finalized at location B. SUPERVISOR
== END 2024-07-11 12:43 | disposition home or self-care (01) ==
LOC: MICIMG 12:43
PROVIDERS: PCP Obstetrics & Gynecology Gynecology; Visit Provider Obstetrics & Gynecology Gynecology
DX: Z12.31 Encounter for screening mammogram for malignant neoplasm of breast (principal)
CPT/HCPCS: 77063; 77067

== ENCOUNTER 2024-09-19 12:50 | Outpatient (CLI) | payer OTHER, SELFPAY ==
--- NOTE | ~2024-09-19 | US_ITS ---
EXAM: PELVIC ULTRASOUND HISTORY: Post menopausal bleeding COMPARISON: 04/25/2024. FINDINGS: UTERUS: 7.3 x 3.3 x 4.5 cm. The endometrial complex measures 3 mm. RIGHT OVARY: The right ovary is unremarkable in echogenicity and size measuring 2.6 x 1.4 x 2.5 cm. Dopplerable flow is identified. LEFT OVARY: The left ovary is unremarkable in echogenicity and size measuring 1.5 x 1.2 x 1.6 cm Dopplerable flow is identified. No free fluid is identified within the pelvis. IMPRESSION: Unremarkable sonographic evaluation of the pelvis, as detailed above. No sonographic findings to correspond to patient's symptoms. Reviewed, dictated and finalized at location A.
== END 2024-09-19 12:51 | disposition home or self-care (01) ==
LOC: MICIMG 12:50
PROVIDERS: PCP Obstetrics & Gynecology Gynecology; Visit Provider Obstetrics & Gynecology Gynecology
DX: N95.0 Postmenopausal bleeding (principal)
CPT/HCPCS: 76830

== ENCOUNTER 2024-10-08 00:51 | Day surgery (SDC) | payer OTHER, SELFPAY ==
[2024-09-28 10:22] VITALS: BMI 33.0
--- NOTE | 2024-09-28 10:23 | PC.NURSE ---
Report to the Outpatient Waiting Room, entrance under the green pavilion located off [facility], at time _1145_ on date _[id number]_. Planned Procedure Time: _145pm_.? Time changes happen often and if your time is changed the preop area will call you the afternoon before. - You and your visitor will be asked to self-screen and do not enter if you have any COVID symptoms. Please call surgeon if you need to reschedule. - A mask is optional within the hospital at this time. Patients may have clear liquids (water, carbonated beverages, clear teas, apple juice) until 3 hours prior to surgery with a maximum of 20 ounces. - No food from midnight until time of surgery and no smoking, or chewing tobacco (or any form of nicotine). No chewing gum, candy or mints. Take only the following medications with a SIP of water on the morning of surgery: __Alprazolam if needed.___ DO NOT STOP ANY OF YOUR OTHER PRESCRIPTION MEDICATIONS PRIOR TO SURGERY EXCEPT THE FOLLOWING Hold all vitamins and supplements for 3 days per anesthesiologist. Medications to discontinue per physician Ibuprofen and Celebrex per Dr Barry's instruction. Date to take last dose Please no make-up, nail english, hairspray, perfume, deodorant, or body powder the day of surgery.? No jewelry (including any body piercings) or valuables the day of surgery, leave them at home.? Please take a shower or bath the night before, or the morning of, surgery with an antibacterial soap.? Wear comfortable, loose fitting clothing. - Jewelry must be removed prior to entering the operating room.? Rings and piercings that are not removed may be cut off. - The hospital will not accept responsibility for valuables.? - Please leave all valuables, including medications, at home the day of surgery. If you are going home after surgery, a licensed tow motor driver must drive you home.? - NO public transportation without another adult if you receive anesthesia. - We recommend that an adult stay with you for 24 hours following discharge. - We also recommend that you do not drive, make important decision, drink alcoholic beverages, or take any drugs that were not prescribed by your health care provider for at least 24 hours after your discharge time. Follow any additional instructions given to you from your surgeon. Telephone instructions given to __Geri__and asked if any additional questions and then verbalized understanding. Patient advised to call surgeon office or pre surgery nurse liaison [phone] if any additional questions.
--- OUTSIDE RECORDS SUMMARY | 2024-10-08 00:55 | XMS_ITS | Data Portability ---
Author Organization [facility], Main Office Address [address] [place] [address] Assessment Encounter Date Assessment Date Assessment LastModified by Organization Details LastModified Time 10/06/2023 10/06/2023 The patient has moderately severe primary osteoarthritis both knee joints as described. Under sterile conditions I injected both knee joints in the office today with Euflexxa injection number 2 the patient brings from the specialty pharmacy. We will see her back next week for the 3rd injection both knees she voiced understanding and agrees above plan she will call for any further problems difficulties or questions. She is already starting to get some relief from the 1st round of injections. Not available 10/06/2023 14:28:24 10/13/2023 10/13/2023 the patient has moderately severe primary osteoarthritis both knees particularly the patellofemoral articulations. We talked about treatment options previously she is going through gel shots therefore under sterile conditions I injected the patient's bilateral knee joints in the office today with Euflexxa injection number 3 that she brings with her from the specialty pharmacy. The patient tolerated the procedures well. I will see her back as needed we can do this again in 6 months if necessary. She also wondered about a possible nonsteroidal anti-inflammatory medication I have recommended Celebrex she wanted take the lowest dose possible we will start with 100 mg daily. We will see how this works for her as well. This was sent to the pharmacy for her today. She voiced understanding agrees above plan she will call for any further problems difficulties or questions. Not available 10/13/2023 14:24:24 05/10/2024 05/10/2024 By today's x-ray s and exam the patient is noted to have moderately severe primary osteoarthritis both knees particularly in the patellofemoral articulations which show narrowing and marginal osteophytes medially and laterally. She does have some narrowing in the medial compartments as well. The patient brings in Euflexxa injection number 1 from the specialty pharmacy under sterile conditions I injected both knee joints in the office today with Euflexxa. I will see her back next week for the 2nd injection both knees. She voiced understanding and agrees with the above plan she will call for any further problems difficulties or questions. Not available 05/10/2024 16:20:21 05/17/2024 05/17/2024 the patient has moderately severe primary osteoarthritis both knees particularly the patellofemoral articulations bilaterally. Under sterile conditions I injected both knee joints in the office today with Euflexxa injection number 2, the medication was obtained from the specialty pharmacy. We will see her back next week for the 3rd injection both knees she voiced understanding and agreed with the above plan she will call for any further problems difficulties or questions. Not available 05/17/2024 15:42:25 05/25/2024 05/25/2024 59-year-old patient presents today for bilateral Euflexxa injections. This is her 3rd and final injection. She typically sees Adrian for her knee pain. She states that the knees have been feeling better since her 1st 2 injections. Injections given without issue. She can follow-up with Adrian as needed for pain. She is in agreement with this plan. [email or web address] Not available 05/25/2024 10:28:33 Plan of Treatment Reminders Order Date Submit Date Provider Last Modified By Organization Details Last Modified Time Details Appointments None recorded. Lab None recorded. Referral None recorded. Procedures injection/a spiration joint/bursa (PROC) - in office procedure, administere d by provider 2023 024 [email or web address] In-Office Order, Internal Use Only DO Not Attach Compendium DO Not Attach Compendium, Do Not Delete/merge, [id number] 09:30:18 injection/a spiration joint/bursa (PROC) - in office procedure, administere d by provider 2023 024 [email or web address] In-Office Order, Internal Use Only DO Not Attach Compendium DO Not Attach Compendium, Do Not Delete/merge, [id number] 15:09:28 injection/a spiration joint/bursa (PROC) - in office procedure, administere d by provider 2023 024 [email or web address] In-Office Order, Internal Use Only DO Not Attach Compendium DO Not Attach Compendium, Do Not Delete/merge, [id number] 15:26:36 knee aspiration/ injection (PROC) 2023 024 [email or web address] 3 In-Office Order, Internal Use Only DO Not Attach Compendium DO Not Attach Compendium, Do Not Delete/merge, [id number] 14:12:40 knee aspiration/ injection (PROC) 2023 024 [email or web address] 3 In-Office Order, Internal Use Only DO Not Attach Compendium DO Not Attach Compendium, Do Not Delete/merge, [id number] 14:06:35 Surgeries None recorded. Imaging XR, knee 2023 024 [email or web address] [facility] [place], [address], [place], [address], 16:22:13 Medication Orders celecoxib 100 mg capsule 2023 024 [email or web address] [facility], [address] [place] [address], [address], 16:08:31 Patient TargetsNo targets recorded. Patient InstructionsNo instructions recorded. Reason for Referral None Reported. Results Created Date Observation Date Name Description Value Unit Range Abnormal Flag Note LastModifiedBy Organization Detail LastModifiedTime 05/10/20 24 XR, knee No observ ation record ed. [email or web address] [facility] [place] [address], [place], [address], 05/10/2024 16:22:11 Result Notes None recorded. Problems Name Problem SNOMED Code Status Onset Date Resolution Date Notes Provider Name and Address Organization Details Recorded Time Bilateral osteoarthr itis of knees 0724903220880 07 Active 2021 Not Available [facility] 3 14:10:32 Disorder of shoulder 873435472 Active Not Available [facility] 3 14:10:32 Osteoarthr itis 338443493 Active 2021 Not Available [facility] 3 14:10:32 Adhesive capsulitis of shoulder 012244376 Active Not Available [facility] 3 14:10:32 Pain of bilateral knee joints 1512464186281 04 Active 2021 Not Available [facility] 3 14:10:32 Neck pain 23594343 Active Not Available [facility] 3 14:10:32 Problem Notes None recorded. Procedures Surgical History Date Name Laterality Status Provider Name and Address Organization Details Recorded Time 05/25/20 24 Euflexxa Injection completed Tete Colunga, ALONSO [address] [facility], [address], [place], [address], [place] [facility] [employer] 05/25/2024 10:28:59 05/30/18 85 Tonsillectomy completed Not Available [facility] 2022 14:10:02 Imaging Results Imaging Date Name Status LastModified by Organiz ation Details LastModified Time 05/10/2024 XR, knee completed [email or web address] [facility] [address], [place], [address], 05/10/2024 16:22:11 Procedure Notes None recorded. Medical Equipment None Reported. Allergies No known drug allergies Medications Name Sig Start Date Stop Date Status Note LastModified by Organization Details LastModified Time amoxicillin 500 mg capsule TAKE ONE CAPSULE BY MOUTH EVERY 8 HOURS UNTIL ALL TAKEN 07/27 completed Not Available Not Available Not Available venlafaxine ER 37.5 mg capsule,ext ended release 24 hr TAKE 1 CAPSULE BY MOUTH EVERY DAY WITH FOOD 05/10 completed Not Available Not Available Not Available prednisone 10 mg tablet 02/10 completed Not Available Not Available Not Available venlafaxine ER 75 mg capsule,ext ended release 24 hr TAKE 1 CAPSULE BY MOUTH EVERY DAY WITH FOOD FOR DEPRESSIO N 05/10 completed Not Available Not Available Not Available ibuprofen 800 mg tablet TAKE 1 TABLET BY MOUTH THREE TIMES DAILY NEEDED FOR PAIN 05/10 completed Not Available Not Available Not Available valacyclovi r 1 gram tablet TAKE 1 TABLET BY MOUTH EVERY 8 HOURS FOR 7 DAYS DIRECTED 05/10 completed Not Available Not Available Not Available ondansetron HCl 4 mg tablet TAKE 1 TABLET BY MOUTH EVERY 8 HOURS FOR 3 DAYS 02/10 completed Not Available Not Available Not Available bupivacaine HCl 0.5 % (5 mg/mL) injection solution Take 20 mg by injection route. 02/10 completed Not Available Not Available Not Available acetazolami de 250 mg tablet 07/27 completed Not Available Not Available Not Available fluocinonid e 0.05 % topical ointment 05/10 completed Not Available Not Available Not Available estradiol-n orethindron e acet 1 mg-0.5 mg tablet TK 1 T PO QD 07/27 completed Not Available Not Available Not Available tramadol 50 mg tablet TAKE 1 TABLET BY MOUTH FOUR TIMES DAILY NEEDED FOR PAIN 02/10 completed Not Available Not Available Not Available prednisone 10 mg tablets in a dose pack Take 1 tab by mouth, 3 times a day for 3 daysTake 1 tab by mouth 2 times a day for 2 daysTake 1 tab by mouth once a day for 1 day 02/10 completed Not Available Not Available Not Available alprazolam 0.5 mg tablet TAKE 1 TABLET BY MOUTH TWICE DAILY NEEDED FOR ANXIETY active Not Available Not Available No t Available estradiol 1 mg tablet active Not Available Not Available No t Available tamsulosin 0.4 mg capsule TAKE 1 CAPSULE BY MOUTH AT BEDTIME 02/10 completed Not Available Not Available Not Available Kenalog 10 mg/mL suspension for injection In office injection administe red by the provider 02/10 completed [facility]: [phone] Not Available Not Available Not Available diazepam 2 mg tablet TAKE 1 TABLET BY MOUTH FOR VERTIGO NEEDED 07/27 completed Not Available Not Available Not Available hydrocodone 7.5 mg-acetamin ophen 325 mg tablet TAKE 1 TABLET BY MOUTH EVERY 6 HOURS NEEDED FOR DISCOMFOR T 07/27 completed Not Available Not Available Not Available progesteron e micronized 200 mg capsule 05/10 completed Not Available Not Available Not Available triamterene 37.5 mg-hydrochl orothiazide 25 mg tablet 07/27 completed Not Available Not Available Not Available omeprazole 20 mg capsule,del ayed release 07/27 completed Not Available Not Available Not Available methylpredn isolone 4 mg tablets in a dose pack 07/27 completed Not Available Not Available Not Available Vitamin D2 1,250 mcg (50,000 unit) capsule 07/27 completed Not Available Not Available Not Available dexamethaso ne 1.5 mg tablet TK 1 TO 2 TS PO Q 6 TO 8 H PRN 07/27 completed Not Available Not Available Not Available celecoxib 100 mg capsule TAKE 1 CAPSULE EVERY DAY BY MOUTH. active Not Available Not Available No t Available ondansetron 4 mg disintegrat ing tablet DISSOLVE 1 TABLET ON THE TONGUE EVERY 6 HOURS NEEDED FOR NAUSEA OR VOMITING 02/10 completed Not Available Not Available Not Available estradiol 0.1 mg/24 hr weekly transdermal patch 05/10 completed Not Available Not Available Not Available progesteron e micronized 100 mg capsule active Not Available Not Available Not Available amoxicillin 500 mg-potassiu m clavulanate 125 mg tablet 07/27 completed Not Available Not Available Not Available cyclobenzap rine 5 mg tablet 07/27 completed Not Available Not Available Not Available nitrofurant oin monohydrate /macrocryst als 100 mg capsule TK 1 C PO BID FOR 5 DAYS 07/27 completed Not Available Not Available Not Available pregabalin 50 mg capsule TAKE 1 CAPSULE BY MOUTH TWICE DAILY 05/10 completed Not Available Not Available Not Available Euflexxa 10 mg/mL (mw 2.4-3.6 million) intra-artic ular syringe 2ml as directed for bilateral knee osteoarth ritis 2023 active Not Available Not Available Not Avai lable Auvi-Q 0.3 mg/0.3 mL injection, auto-inject or INJECT 0.3 MG INTRAMUSC ULARLY 05/10 completed Not Available Not Available Not Available Fluvirin [id number] 45 mcg (15 mcg x 3)/0.5 mL intramuscul ar suspension 02/10 completed Not Available Not Available Not Available Gale 0.1 mg/24 hr transdermal patch 05/10 completed Not Available Not Available Not Available Fluzone Quad (PF) 60 mcg (15 mcg x 4)/0.5 mL IM syringe PHARMACY ADMINISTE OVI 02/10 completed Not Available Not Available Not Available Ozempic 1 mg/dose (4 mg/3 mL) subcutaneou s pen injector INJECT 1MG UNDER THE SKIN ONCE WEEKLY ON SAME DAY OF EACH WEEK 02/10 completed Not Available Not Available Not Available Paxlovid 300 mg (150 mg x 2)-100 mg tablets in a dose pack active Not Available Not Available Not Available Vitals Date Recorded Body height Body mass index (BMI) Body weight Provider Name and Address Organization Details Last Updated DateTime 10/06/2023 170.18 cm 32.9 kg/m2 41042.4 g Michelle Sethi [employer] [facility] 10/06/2023 14:05:41 Date Recorded Body height Body mass index (BMI) Body weight Provider Name and Address Organization Details Last Updated DateTime 10/13/2023 170.18 cm 32.9 kg/m2 32202.4 g Michelle Berumenison [employer] [facility] 10/13/2023 14:12:02 Date Recorded Body height Body mass index (BMI) Body weight Provider Name and Address Organization Details Last Updated DateTime 05/10/2024 170.18 cm 32.9 kg/m2 57063.4 g Dee Rajanconcha [employer]FF[employer] [facility] 05/10/2024 15:33:13 Date Recorded Body height Body mass index (BMI) Body weight Provider Name and Address Organization Details Last Updated DateTime 05/17/2024 170.18 cm 33.2 kg/m2 94306.58 g Dee Obinna, [employer] [facility] 05/17/2024 15:08:55 Date Recorded Body height Body mass index (BMI) Body weight Provider Name and Address Organization Details Last Updated DateTime 05/25/2024 170.18 cm 32.9 kg/m2 28545.4 g Dee Obinna, BUFFET ATT[employer] [facility] 05/25/2024 09:29:13 Social History None recorded. Functional Status Question Answer Note LastModified by Organizat ion Details LastModified Time What is your level of alcohol consumption? Occasional [email or web address] Information not available 05/10/2024 Mental Status None recorded. Family History Relationship Description Onset Age of this Age Resolved Age Notes LastModified by Organization Details LastModified Time Mother Family history of malignant neoplasm [id number] Not available 07/28/2022 14:10:02 Mother Diabetes mellitus [id number] Not available 07/28/2022 14:10:02 Father Diabetes mellitus [email or web address] Not available 2023 15:35:52 Medical History Condition Response SKIN PROBLEMS Y ARTHRITIS Y ANEMIA/BLOOD DISORDER Y Gynecological HistoryNo gynecological history recorded. Obstetrics History GPAL:G 0 P 0 0 0 0 Past Encounters Encounter ID Performer Location Encounter Start Date Encounter Closed Date Diagnosis/Indication Diagnosis SNOMED-CT Code Diagnosis ICD10 Code Diagnosis Note [id number] Ashok Blanchard MD [facility] [place] [address] [place] [address] 08/10/2021 00:00:00 08/10/2021 10:55:29 [id number] Ashok Blanchard MD [facility] [place] [address] [place] [address] 09/22/2021 00:00:00 09/22/2021 14:32:16 [id number] Ashok Blanchard MD [facility] [place] [address] [place] [address] 10/05/2021 00:00:00 10/05/2021 10:15:23 [id number] Ashok Blanchard MD [facility] [place] [address] [place] [address] 10/12/2021 00:00:00 10/12/2021 10:50:37 [id number] Ashok Blanchard MD [facility] [place] [address] [place] [address] 10/19/2021 00:00:00 10/19/2021 10:08:43 [id number] Ashok Blanchard MD [facility] [place] [address] [place] [address] 04/26/2022 00:00:00 04/26/2022 10:00:54 [id number] Ashok Blanchard MD [facility] [place] [address] [place] [address] 05/04/2022 00:00:00 05/04/2022 14:33:23 [id number] Ashok Blanchard MD [facility] [place] [address] [place] [address] 05/13/2022 00:00:00 05/13/2022 09:34:44 [id number] Ashok Blanchard MD [facility] [place] [address] [place] [address] 02/10/2023 09:09:42 02/10/2023 10:03:52 Bilateral osteoarthritis of knees 7176941274 72987 M17.0 Pain of bi lateral knee joints 5721090327 64975 M25.561 M25.150 [id number] Ashok Blanchard MD [facility] [place] [address] [place] [address] 02/17/2023 09:13:47 02/17/2023 10:03:29 Bilateral osteoarthritis of knees 2285737224 94069 M17.0 Pain of bi lateral knee joints 5785643006 60748 M25.561 M25.481 [id number] Abdoulaye Claire MD [facility] [place] [address] [place] [address] 02/24/2023 09:07:50 02/24/2023 10:37:31 Bilateral osteoarthritis of knees 7546507797 66296 M17.0 Pain of bi lateral knee joints 1568749542 81466 M25.561 M25.439 [id number] Nasir Patel MD [facility] [place] [address] [place] [address] 09/29/2023 14:02:48 09/29/2023 15:13:26 Bilateral osteoarthritis of knees 0260095072 40878 M17.0 Pain of bi lateral knee joints 7911750155 07364 M25.561 M25.997 [id number] Nasir Patel MD [facility] [place] [address] [place] [address] 10/06/2023 14:01:22 10/06/2023 14:30:20 Bilateral osteoarthritis of knees 0483294111 50625 M17.0 [id number] Nasir Patel MD [facility] [place] [address] [place] [address] 10/13/2023 14:04:26 10/13/2023 14:27:11 Bilateral osteoarthritis of knees 6370299807 49343 M17.0 [id number] Nasir Patel MD [facility] [place] [address] [place] [address] 05/10/2024 15:22:52 05/10/2024 15:58:01 Bilateral osteoarthritis of knees 0801125626 18852 M17.0 Pain of bi lateral knee joints 7352469819 87101 M25.561 M25.891 [id number] Nasir Patel MD [facility] [place] [address] [place] [address] 05/17/2024 15:06:01 05/17/2024 16:27:12 Bilateral osteoarthritis of knees 5436458002 02830 M17.0 Pain of bi lateral knee joints 3692103713 80468 M25.561 M25.678 [id number] Nasir Patel MD [facility] [place] [address] [place] [address] 05/25/2024 09:20:16 05/25/2024 09:57:49 Bilateral osteoarthritis of knees 2082162536 45434 M17.0 Pain of bi lateral knee joints 2815482509 33671 M25.561 M25.562 Health Concerns Section Related Observation LastModified by Organization Detai ls LastModified Time None Recorded Concern Status LastModified by Organization Details LastModified Time None Recorded Advance Directives Directive None Recorded Payers Encounter Date Sequence Insurance Name Policy Number Policy Stevens Covered Member ID Stevens Member ID Guarantor Name 10/06/2023 1 [facility] [facility] [employer] [id number] Melisa Briscoe [id number] Melisa Briscoe 10/13/2023 1 [facility] [facility] [facility] [employer] [id number] Melisa Briscoe [id number] Melisa Briscoe 05/10/2024 1 [facility] [id number] Melisa Briscoe [id number] Melisa Briscoe 05/17/2024 1 [facility] [id number] Melisa Briscoe [id number] Melisa Briscoe 05/25/2024 1 [facility] [id number] Melisa Briscoe [id number] Melisa Briscoe Notes Date Note Type Note Provider Name and Address Organization Details Recorded Time 10/06/2023 text/html patient returns for Euflexxa injection number 2 both knees. She is moderately severe primary osteoarthritis more advanced in the patellofemoral articulations with small marginal osteophytes and narrowing mild to moderate in the tibial femoral articulations as well. Right knee hurts worse than the left. She comes in today for the 2nd round of shots. ROMERO Cosby [address], [address], [place], [address], [employer] 10/06/2023 14:28:36 10/13/2023 text/html Patient returns for Euflexxa injection number 3 both knees. She brings the medication and from the specialty pharmacy. She has severe primary osteoarthritis more advanced in the patellofemoral articulations with small marginal osteophytes and narrowing mild to moderate in the tibial femoral articulations as well. She states she is starting to get some good relief from the 1st 2 rounds of injections. Denies any erythema effusion or signs of infection today. ROMERO Cosby [address], [address], [place], [address], [employer] 10/13/2023 14:25:14 05/10/2024 text/html Patient returns have not seen her for 7 months. Last time she was here we did a round of gel shots. She returns stating that her knee pain has flared up again. She had excellent relief from the last round of injections which lasted about 6 months. Today she reports that her pain in the knees is about a 5 on a scale of 1-10 left slightly worse than right. She denies any new trauma or injury she has aching pain mostly in the medial compartments of both knees as well as the anterior compartment in the patellofemoral region. She reports grinding crepitation aching pain she has trouble squatting kneeling going up and down stairs. She does take Celebrex on a regular basis this helps somewhat. She denies any effusion or swelling mechanical symptoms other than the crepitation. She does have start-up pain rest pain and night pain. She comes in today for Euflexxa injection number 1 both knees she brings the medication from the specialty pharmacy. New past medical history sheet was reviewed and signed on intake sheet of today's date drug allergies current medications family social history previous surgical history 10 point review of systems was reviewed and discussed in detail today with the patient. ROMERO Cosby [address] [employer], [address], [place], [address], [employer] 05/10/2024 16:22:54 05/17/2024 text/html The patient retu rns for Euflexxa injection number to both knees she brings the medication from the specialty pharmacy. She is getting good relief from the 1st injections already. She gets good relief typically from gel shots she comes in every 6 months. The patient has moderately severe primary osteoarthritis particularly in the bilateral patellofemoral articulations which show narrowing and marginal osteophytes medially and laterally. She does have some narrowing in the medial compartments as well. Today she denies any new problems no erythema effusion or signs of infection the pain is decreasing and improving with treatment last week. ROMERO Cosby [address], [address], [place], [address], [employer] 05/17/2024 15:42:36 OBGyn Episode No OBEpisode recorded.
--- OUTSIDE RECORDS SUMMARY | 2024-10-08 00:55 | XMS_ITS | Encounter Summary ---
Author Organization [facility] Health Address [address] [place] [address] Care Team Providers Care Mortising Machine Operator Name Role Phone Cleveland Christianson MD Primary Care Provider Unavail able Encounter Details Date Type Department Care Team (Late Contact Info) Description 11/24/2009 [facility]NAL [facility] DEPT Unknown, Provider Social History Tobacco Use Types Packs/Day Years Used Date Smoking Tobacco: Former Cigarettes 1 15 Comments:Cigarettes Alcohol Use Standard Drinks/Week Comments Yes 0 (1 standard drink = 0.6 oz pur e alcohol) Occasionally Comments Unknown Sex and Gender Information Value Date Recorded Sex Assigned at Female 05/11/2021 9: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 MARITIME ENGINEER Legal Sex Female 8:31 AM MARITIME ENGINEER Gender Identity Female 05/11/2021 9:43 AM MARITIME ENGINEER Sexual Orientation Choose not to disclose 2020 9:43 AM MARITIME 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 file Not on file Not on file documented as of this encounter Plan of Treatment Upcoming Encounters Date Type Department Care Team (Late Contact Info) Description 11/16/2024 1:00 PM CDT Office Visit [facility] - Dermatology [address] [place] [address], [facility] [place] [address] Celeste Rodney MD [address] [place], [place] [address] [address] [phone] documented as of this encounter Visit Diagnoses Not on filedocumented in this encounter Care Teams Mortising Machine Operator Relationship Specialty Start Date End Date Cleveland Christianson MD PCP - General 04/11/18 documented as of this encounter
--- OUTSIDE RECORDS SUMMARY | 2024-10-08 00:55 | XMS_ITS | Clinical Summary ---
Author Organization [facility] Address [address] [place] [address] Care Team Providers Care Senior [employer] D[employer] Name Role Phone Cleveland Christianson MD Primary Care Provider Unavail able Source Comments [facility],non-owned Affiliates and Associated Physician Practices is amultiple site organization consisting of ambulatory clinics and hospital sitesin [place], [place], [place] and [place]. This disclosure is being madepursuant to the Care Everywhere program and may not contain all information available regarding this patient. Last updated 18.[facility] Allergies Active Allergy Reactions Criticality Noted Date Comments Hydrocodone Other,Nausea and/or Vomiting 2009 Medications * Be aware that medications may not be up to date on this document. Alwaysverify current medications with the patient. ALPRAZolam (XANAX) 0.5 MG tablet Take 1 (one) tablet by mouth 2 times daily as needed 1 8 Active vitamin D3 (CHOLECALCIFERO L) 25 MCG (1000 UNITS) tablet Take 1 (one) tablet by mouth once daily Active estradiol (Estrace) 1 MG tablet take 1 tablet by oral route every day for hrt 1 Active Progesterone 100 MG capsule 3 Active fluocinonide (Lidex) 0.05 % ointmentIndicat ions:Other eczema Apply 1 applicator to affected area 2 times daily as needed 60 g 3 3 Active cetirizine (ZyrTEC) 10 MG tablet 1 tab(s) orally Qday, PRN Active Active Problems Problem Noted Date Diagnosed Date Osteoarthritis of knee 09/15/2021 Bilateral hearing loss 07/17/2019 Dermatofibroma 04/25/2018 Gonzalez angioma 04/25/2018 Lentigines 04/25/2018 Melanocytic nevi of trunk 04/25/2018 Keratosis pilaris 04/25/2018 Eczema 04/25/2018 Vitamin D deficiency 09/06/2017 Palpitations 09/06/2017 Iron deficiency anemia 09/06/2017 Chronic superficial gastritis 09/06/2017 Anxiety 09/06/2017 Low back pain 07/22/2009 Right leg pain 07/22/2009 Encounters Date Type Department Care Team Description 07/25/2024 Travel 07/25/2024 Telephone [facility] - General Dermatology [address] [place] [address] Celeste Rodney MD Appointment from Last 3 Months Immunizations Immunization Administration Dates Next Due INFLUENZA VACCINE 02/28/2019 INFLUENZA VACCINE, QUADR. (F LUZONE; FLULAVAL; FLUARIX; AFLURIA QUADRIVALENT; 6MO+), 0.5 ML (IIV4) 02/27/2020,02/27/2019 Family History Medical History Relation Name Comments Diabetes Father Heart Failure Father Stroke Father Possible Diabetes Mother Heart Failure Mother Pacemaker Relation Name Status Comments Brother Alive Father Alive Mother Alive Sister 1 Alive Sister 2 Alive Sister 3 Alive Social History Tobacco Use Types Packs/Day Years Used Date Smoking Tobacco: Former Cigarettes 1 15 Smokeless Tobacco: Never Tobacco Cessation:Counseling Given: Not Answered Comments:Cigarettes Alcohol Use Standard Drinks/Week Comments Yes 0 (1 standard drink = 0.6 oz pur e alcohol) Occasionally Comments No Sex and Gender Information Value Date Recorded Sex Assigned at Female 05/11/2021 9:43 AM DROP COUNT ASSOCIATE Legal Sex Female 8:31 AM DROP COUNT ASSOCIATE Gender Identity Female 05/11/2021 9:43 AM DROP COUNT ASSOCIATE Sexual Orientation Choose not to disclose 2020 9:43 AM DROP COUNT ASSOCIATE 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 on file Not on file Not on file Last Filed Vital Signs Vital Sign Reading Time Taken Comments Blood Pressure - - Pulse - - Temperature - - Respiratory Rate - - Oxygen Saturation - - Inhaled Oxygen Concentration - - Weight 82.6 kg (182 lb) 07/28/2009 3:31 PM DROP COUNT ASSOCIATE Height 170.2 cm (5' 7 ) 07/28/2009 3:31 PM DROP COUNT ASSOCIATE Body Mass Index 28.51 07/28/2009 3:31 PM DROP COUNT ASSOCIATE Plan of Treatment Upcoming Encounters Date Type Department Care Team (Late st Contact Info) Description 11/16/2024 1:00 PM CDT Office Visit [facility] - Dermatology [address] [place] [address] Celeste Rodney MD [address] [facility] [place] [id number] Health Maintenance Due Date Last Done Comments COLOGUARD (AGES 45-75) - COLON CA SCREENING 1965 COLON MONITORING 1965 COLONOSCOPY - COLON CA SCREENING 1965 CT COLONOGRAPHY - COLON CA SCREENING 1965 Colorectal Cancer Screening 1965 FIT - COLON CA SCREENING 1965 FLEX SIG - COLON CA SCREENING 1965 MAMMOGRAM 1965 PAP SMEAR 1965 HIV SCREENING 1980 HEPATITIS C SCREENING 03/28/1983 DTAP/TDAP/TD VACCINES (1 - Tdap) 1984 HEPATITIS B VACCINE (1 of 3 - 19+ 3-dose series) 1984 PNEUMOCOCCAL VACCINE 50+ (1 of 1 - PCV) 2015 ZOSTER VACCINE (1 of 2) 2015 COVID-19 VACCINE (1 - season) 2024 DEPRESSION SCREENING 05/30/2024 LIPID TESTING 01/26/2027 01/26/2022, 11/27/2019 INFLUENZA VACCINE Completed 03/12/2024, , 03/23/2021, Additional history exists HIB VACCINE Aged Out No longer eligi ble based on patient's age to complete this topic HPV VACCINE Aged Out No longer eligi ble based on patient's age to complete this topic MENINGOCOCCAL (Group B) VACCINE SHARED DECISION-MAKING Aged Out No longer eligible based on patient's age to complete this topic MENINGOCOCCAL GROUPS A/C/Y/W VACCINE Aged Out No longer eligible based on patient's age to complete this topic Insurance [facility] Care Teams Senior Oracle Dba Relationship Specialty Start Date End Date Cleveland Christianson MD PCP - General 04/11/18
--- OUTSIDE RECORDS SUMMARY | 2024-10-08 00:55 | XMS_ITS | Data Portability ---
Author Organization [facility], Main Office Address [address] [place] [address] Assessment No assessment recorded. Plan of Treatment Reminders Order Date Submit Date Provider Last Modified By Organization Details Last Modified Time Details Appointments None record ed. Lab None record ed. Referral None record ed. Procedures None record ed. Surgeries None record ed. Imaging None record ed. Medication Orders None record ed. Patient TargetsNo targets recorded. Patient Instructions Encounter Date Encounter Id Patient Instructions Last Modified By Organization Details Last Modified Time 06/09/2023 Patient counsele d to F/U immediately if temp. greater than 100.4, if is unable to urinate, increased rectal pain or any other concerns. Not available 07/17/2023 13:52:31 She will f/u in 6 - 7 weeks and I will retreat her RP, then LL and possibly also treat her RA. We may or may not do another treatment about 3 months after that. On today's visit I spent a total of {{30 35 40* 45 50 55 60}} minutes prepping for her visit (reviewing past and shared records), [id number] with her and documenting. Not available 07/17/2023 13:53:23 07/21/2023 [id number] Patient counsele d to F/U immediately if temp. greater than 100.4, if is unable to urinate, increased rectal pain or any other concerns. Not available 07/20/2023 20:27:44 She will f/u wit h me only as needed. I d/w her that if she feels she needs another treatment, the soonest I would see her would be in 3 months. Not available 07/21/2023 15:04:11 Reason for Referral None Reported. Problems Name Problem SNOMED Code Status Onset Date Resolution Date Notes Provider Name and Address Organization Details Recorded Time History of polyp of colon 391364762 Active 2013 Jessica Duran MD [address] [place] [address],[address], [address], [facility] [place] 4 13:41:21 External hemorrhoids 35745265 Active 2009 Jessica Duran MD [address] [place] [address],[facility] [address] [place] [address], [phone], [facility] [place] 4 13:41:32 Pile easily reducible 246157821 Active 2009 Tx #1: 0 1.1 x 6 RP Tx #2: 02/03/10 1.1 x 4 RA Tx #3: 0 1.1 x 5 LL Tx #4: 0 1.1 x 3 RP and 1.1 x 4 LL Tx #5: 0 1.2 x 5 LL Tx #6: 2 1.2 x 8 LL Tx #7: 5 1.2 x 6 LL Tx #8: 4 1.2 x 5 LL and 1.2 x 7 RP Tx #9: 4 1.2 x 5 RP, x 5 LL and x 3 RA Jessica Duran MD [address] [place] [address],[address] [place] [address], [phone], [facility] [place] 4 15:04:21 Thrombosed external hemorrhoids 05261242 Active 2009 Jessica Duran MD [address] [place] [address],[address] [place] [address], [phone] , [facility] [place] 4 20:55:06 Problem Notes None recorded. Procedures Surgical History Date Name Laterality Status Provider Name and Address Organization Details Recorded Time 07/21/19 24 [place] [address] [place] [address],[address], [place], [address], [facility] [place] 07/21/2023 15:02:41 06/09/19 24 [place] [address] [place] [address],[address], [place], [address], [facility] [place] 07/17/2023 13:49:12 06/06/19 24 Date of Last Mammogram completed MARIUM TOLBERT [facility] 06/09/2023 11:33:55 11/28/19 23 Date of Last Pap Smear completed MARIUM TOLBERT [facility] 06/09/2023 11:34:03 05/30/19 19 Colonoscopy completed Jessica Duran MD [address] [place] [address],[address], [place], [address], [facility] 07/17/2023 13:36:34 05/30/19 14 [place] [address] [place] [address],[address], [place], [address], [facility] 06/08/2023 20:50:30 04/01/19 83 Tonsillectomy completed Jessica Duran MD [address] [place] [address],[address], [place], [address], [facility] 07/17/2023 13:36:57 Imaging Results None recorded. Procedure Notes None recorded. Medical Equipment None Reported. Allergies No known drug allergies Medications Name Sig Start Date Stop Date Status Note LastModified by Organization Details LastModified Time venlafaxi ne ER 37.5 mg capsule,e xtended release 24 hr TAKE 1 CAPSULE BY MOUTH EVERY DAY WITH FOOD 07/17 completed Not Available Not Available Not Available venlafaxi ne ER 75 mg capsule,e xtended release 24 hr TAKE 1 CAPSULE BY MOUTH EVERY DAY WITH FOOD FOR DEPRESSI ON 07/17 completed Not Available Not Available Not Available valacyclo vir 1 gram tablet TAKE 1 TABLET BY MOUTH EVERY 8 HOURS FOR 7 DAYS DIRECTED active Not Available Not Available No t Available alprazola m 0.5 mg tablet TAKE 1 TABLET BY MOUTH TWICE DAILY NEEDED FOR ANXIETY active Not Available Not Available No t Available estradiol 1 mg tablet active Not Available Not Available Not Available progester one micronize d 100 mg capsule active Not Available Not Available Not Available pregabali n 50 mg capsule TAKE 1 CAPSULE BY MOUTH TWICE DAILY active Not Available Not Available No t Available Gooddoris's Extra Strength 500 mg-325 mg-65 mg oral powder packet Take by oral route. active 06/09/23: She states she takes a packet 4 - 5 times weekly. She denies taking any other aspirin products . Not Available Not Available Not Available Ozempic 1 mg/dose (4 mg/3 mL) subcutane ous pen injector INJECT 1MG UNDER THE SKIN ONCE WEEKLY ON SAME DAY OF EACH WEEK 07/17 completed Not Available Not Available Not Available Vitals None Recorded Social History Question Answer Notes LastModified by Organizat ion Details LastModified Time Tobacco Smoking Status Former Smoker MARIUM morton [place] - [facility] 06/09/2023 11:32:59 Alcohol Use No [email or web address] Information not available 06/09/2023 Caffeine Use Yes [email or web address] Information not available 06/09/2023 Caffeine Type Tea/soda Informatio n not available 06/09/2023 Caffeine Amount 1 Cup Or Less [email or web address] Information not available 06/09/2023 Illicit Drug Use No [email or web address] Information not available 06/09/2023 What Was The Date Of Your Most Recent Tobacco Screening? 07/21/2023 [email or web address] Information not available 07/21/2023 How Much Tobacco Do You Smoke? 0.25 PPD [email or web address] Information not available 06/09/2023 How Many Years Have You Smoked Tobacco? 20 [email or web address] Information not available 06/09/2023 Sex: Unknown Functional Status Question Answer Note LastModified by Organization D etails LastModified Time Do you or have you ever used any other forms of tobacco or nicotine? No [email or web address] Information not available 06/09/2023 Mental Status None recorded. Family History Relationship Description Onset Age of this Age Resolved Age Notes LastModified by Organization Details LastModified Time Mother Malignant tumor of breast 70 [email or web address] Not available 05/30 11:10:25 Mother Diabetes mellitus [email or web address] Not available 05/30 11:32:34 Father Diabetes mellitus [email or web address] Not available 05/30 11:32:34 Medical History Condition Response Coronary Artery Disease N Other N Atrial Fibrillation N Kidney Stones Y Hyperthyroidism N Hernia N Depression N COPD N Hypothyroidism N Glaucoma N Accidental Bowel Leakage N Headaches/Migraines Y Deep Vein Thrombosis N Cardiac Dysrhythmia N Anxiety Disorder Y MRSA/VRE Exposure N Genital Herpes N Diverticulosis N Cancer N Stroke N Head Trauma N Crohn's Disease N Genital Warts N Liver Disease/Hepatitis N HIV/AIDS N High Cholesterol Y Irritable Bowel Syndrome N Kidney Disease N Autoimmune Disease N Anemia N Celiac Disease N Arthritis/Gout Y Anal/Rectal Trauma/Injury N Diabetes N Cataracts N Bleeding Disorder N Seizures/Epilepsy N Congestive Heart Failure (CHF) N Diverticulitis N Heart Attack N Asthma N Reflux/GERD N Ulcerative Colitis N Sleep Apnea N Mitral Valve Prolapse Y Aneurysm N Heart Disease N Pulmonary Embolism N Hypertension N Colon/Rectal Polyps Y Gynecological History Statement/Question Response Number of Pregnancies? 1 Date of Last Mammogram 06/06/2023 Could You Be or Are You Currently Pregna nt? N Number of C-Sections? 0 Number of Vaginal Deliveries? 0 Accidental Bowel Leakage Post Delivery? N Episiotomy During Delivery? N Date of Last Pap Smear 11/27/2022 Obstetrics History GPAL:G 0 P 0 0 0 0 Past Encounters Encounter ID Performer Location Encounter Start Date Encounter Closed Date Diagnosis/Indication Diagnosis SNOMED-CT Code Diagnosis ICD10 Code Diagnosis Note [id number] Jessica Duran MD Main Office [address] [address] [place] [address] 06/09/2023 10:36:36 06/09/2023 12:50:52 Pile easily reducible 209277343 K64.1 Stage 2 internal hemorrhoid s: She has done well with infrared coagulatio n in the past and I think she would benefit now. I reviewed full informed consent with her including risks/bene fits and alternativ es. She wanted to proceed with treatment. Her 8th overall (1st in this series) treatment was done today on her LL and RP internal hemorrhoid s.I advised she needs to limit her Goody's Powder to no more than 1 packet about every 5 days to minimize the (already very low) risk of having bleeding from the treatment. She of course needs to continue eating a high fiber diet, drinking plenty of water and taking her Metamucil daily to maintain daily and soft BM's. External hemorrhoids 239 40792 K64.4 These will improve with IRC. She understand s the only way to directly treat external hemorrhoid s/skin tags would be with a surgical excision. She does not wish to pursue this and her hemorrhoid s are not bad enough to warrant surgery. She should continue using the moist baby wipes after BM's. History of polyp of colon [id number] Z86.010 This was in 2013. She evidently had a negative scope in about 2018 and is not due for a repeat for 7 - 8 years ( ). I do not have access to her c-scope reports. [id number] Jessica Duran MD Main Office [address] [facility] [address] [place] [address] 07/21/2023 13:50:16 07/21/2023 14:50:11 Pile easily reducible 439059394 K64.1 Stage 2 internal hemorrhoid s: She is doing well with infrared coagulatio n. Her 9th overall (2nd in this series) treatment was done today on all three of her internal hemorrhoid s.She knows she needs to limit her Goody's Powder to no more than 1 packet about every 5 days to minimize the (already very low) risk of having bleeding from the treatment. She of course needs to continue eating a high fiber diet, drinking plenty of water and taking her Metamucil daily to maintain daily and soft BM's. External hemorrhoids 239 [address] K64.4 These have improved with IRC. She understand s the only way to directly treat external hemorrhoid s/skin tags would be with a surgical excision. She does not wish to pursue this and her hemorrhoid s are not bad enough to warrant surgery. She should continue using the moist baby wipes after BM's. Health Concerns Section Related Observation LastModified by Organization Detai ls LastModified Time None Recorded Concern Status LastModified by Organization Details LastModified Time None Recorded Advance Directives Directive None Recorded Payers Encounter Date Sequence Insurance Name Policy Number Policy Stevens Covered Member ID Stevens Member ID Guarantor Name 06/09/2023 1 [facility] [id number] Melisa Briscoe [id number] Melisa Briscoe 07/21/2023 1 [facility] [id number] Melisa Briscoe [id number] Melisa Briscoe Notes Date Note Type Note Provider Name and Address Organization Details Recorded Time 06/09/2023 text/html See previous visits. She states she did very well after her last treatment on 11/19/14. She had no symptoms from her hemorrhoids for years. Over about the last 3 - 4 years she has had the return of minor and very intermittent symptoms. Over the last year these have become more persistent. At baseline, she uses Balneol about 1 time weekly for irritation and OTC hemorrhoid suppositories about 2 times weekly for discomfort. Over [place] she had a worse flare of abrupt swelling and pain. After 4 - 6 days the area ruptured draining a blood clot and some fresh blood. She admits she is better and is back to her baseline. Given the severity of the flare, she presents today for an evaluation and to have treatment again if it would be helpful. Bleeding: She had minuscule and rare BRB on the wipe at baseline. She did have the bleeding with this acute flare. The bleeding has stopped. Pain: Only with this recent flare. Itching: She does get external irritation and itching as above. She uses the Balneol and OTC suppositories for this. Discharge: Over the last 3 - 4 years, at baseline, it is always hard to get clean after BM's because of swelling and irritation. She uses moist baby wipes or takes a shower. She does not have difficulty staying clean - she does not have to re-wipe. She has no drainage. Prolapse: Not that she feels or has to manually reduce. External swelling: As above. At baseline she gets some swelling with BM's. This is worse with flares. Discomfort: As above. She denies baseline internal symptoms of pressure, a sense of being blocked when trying to have a BM or a sense of incomplete emptying after BM's. Previous Hemorrhoid Treatment: She has had the 7 IRC treatments here from 01/26/2010-11/19/2014 . She has used the OTC as above. She has never had any other procedures on her hemorrhoids. Previous Lower GI Endoscopy: She had a c-scope in 2014 and did have polyps. She states she had a repeat in 2019 and this was clear. She states she is due for a repeat at 7-8 years. I do not have access to her c-scope reports. Bowel Habits: She has 2 BM's daily and they are soft to slightly loose (Quay Scale type 4 - 5). She consistently eats a high fiber diet and drinks plenty of water. She takes 1 tablespoon of Metamucil daily.Her PMH was reviewed. See forms filled out today. Her EMR was updated. She does take Goody's Powder about 1 time daily or less - probably 4 - 5 times weekly. She denies taking any other aspirin products. Jessica Duran MD [address], [place], [address], [facility] 07/17/2023 13:54:19 07/21/2023 text/html She had no probl em with the last treatment and she is better. She states the swelling and discomfort got much better within a few days. She still has some discomfort. She has had no bleeding. She has taken the Goody's Powder only 1 time since her last treatment.She is working with the Metamucil. She tends to have loose BM's. 06/09/23:See previous visits. She states she did very well after her last treatment on 11/19/14. She had no symptoms from her hemorrhoids for years. Over about the last 3 - 4 years she has had the return of minor and very intermittent symptoms. Over the last year these have become more persistent. At baseline, she uses Balneol about 1 time weekly for irritation and OTC hemorrhoid suppositories about 2 times weekly for discomfort.Over [place] she had a worse flare of abrupt swelling and pain. After 4 - 6 days the area ruptured draining a blood clot and some fresh blood. She admits she is better and is back to her baseline. Given the severity of the flare, she presents today for an evaluation and to have treatment again if it would be helpful.Bleeding: She had minuscule and rare BRB on the wipe at baseline. She did have the bleeding with this acute flare. The bleeding has stopped.Pain: Only with this recent flare.Itching: She does get external irritation and itching as above. She uses the Balneol and OTC suppositories for this.Discharge: Over the last 3 - 4 years, at baseline, it is always hard to get clean after BM's because of swelling and irritation. She uses moist baby wipes or takes a shower. She does not have difficulty staying clean - she does not have to re-wipe. She has no drainage.Prolapse: Not that she feels or has to manually reduce.External swelling: As above. At baseline she gets some swelling with BM's. This is worse with flares.Discomfort: As above. She denies baseline internal symptoms of pressure, a sense of being blocked when trying to have a BM or a sense of incomplete emptying after BM's.Previous Hemorrhoid Treatment: She has had the 7 IRC treatments here from 01/26/2010-11/19/2014 . She has used the OTC as above. She has never had any other procedures on her hemorrhoids.Previou s Lower GI Endoscopy: She had a c-scope in 2014 and did have polyps. She states she had a repeat in 2019 and this was clear. She states she is due for a repeat at 7-8 years. I do not have access to her c-scope reports.Bowel Habits: She has 2 BM's daily and they are soft to slightly loose (Quay Scale type 4 - 5). She consistently eats a high fiber diet and drinks plenty of water. She takes 1 tablespoon of Metamucil daily.Her PMH was reviewed. See forms filled out today. Her EMR was updated.She does take Goody's Powder about 1 time daily or less - probably 4 - 5 times weekly. She denies taking any other aspirin products. Jessica Duran MD [address] [facility],[address], [place], [address], [facility] 07/21/2023 15:04:55 OBGyn Episode No OBEpisode recorded.
--- OUTSIDE RECORDS SUMMARY | 2024-10-08 00:55 | XMS_ITS | Clinical Summary ---
Author Organization [facility] Address [address] [place] [address] Phone Care Team Providers Care Call Center Manager Name Role Phone [place] Christianson Primary Care Provider Unavailabl e Social History Tobacco Use Types Packs/Day Years Used Date Smoking Tobacco: Never Assessed Comments Unknown Sex and Gender Information Value Date Recorded Sex Assigned at Not on file Legal Sex Female 9:47 AM CDT Gender Identity Not on file Sexual Orientation Not on file Plan of Treatment Health Maintenance Due Date Last Done Comments Hepatitis C Virus (HCV) Screening 1965 TdaP Immunization 1965 Hepatitis B Immunization (1 of 3 - 19+ 3-dose series) 1984 Pap Smear 1986 Cervical Cancer Screening (CCS) 1995 HPV/Cotest 1995 Cologuard 2015 Immunochemical Fecal Occult Blood 2015 Mammogram 2015 Pneumococcal Immunization (5 0+ years) (1 of 1 - PCV) 2015 Zoster Immunization (1 of 2) 2015 Influenza Immunization (#1) 2024 SARS-COV-2 Immunization ( - 2023- season) 2024 Colonoscopy 02/22/2026 02/22/2019 Colorectal Cancer Screening 02/22/2026 Respiratory Syncytial Virus (RSV) Immunization (Adult) (1 - 1-dose 75+ series) 2040 02/22/2019 Meningococcal Immunization (ACWY) Aged Out No longer eligible based on patient's age to complete this topic Pneumococcal Immunization Combined Aged Out No longer eligible based on patient's age to complete this topic Rotavirus Immunization Aged Out No lo nger eligible based on patient's age to complete this topic Procedures Procedure Name Priority Date/Time Associated Diagnosis Comments COLONOSCOPY Routine 02/22/2019 from Last 3 Months or Most Recently Relevant to Health Maintenance Results * COLONOSCOPY (02/22/2019) Logan Burroughs DO PROCEDURE/MINOR SURGICAL ORDERA BLES Final Result from Last 3 Months or Most Recently Relevant to Health Maintenance Care Teams Call Center Manager Relationship Specialty Start Date End Date Cleveland Christianson [address] [place] [address] PCP - General 01/16/19
--- NOTE | 2024-10-08 08:37 | WPDHPUPDATE1 ---
History and Physical Update Update Date/Time: 10/08/24 08:37 History and Physical has been reviewed, including an updated exam of the patient. There are NO changes in the patient's condition. Risks, benefits, and alternatives have been discussed and questions answered. Patient agrees to proceed with procedure.
--- NOTE | 2024-10-08 08:37 | PM.HPGS ---
History of Present Illness History of Present Illness Consent: Risks, benefits, and alternatives have been discussed and questions answered. Patient agrees to proceed with procedure. Chief complaint: post menopausal bleeding Narrative: Melisa Briscoe is a 59 year old female with postmenopausal bleeding. Pelvic ultrasound is showing the endometrium only at 3mm however the patient has continued her and observe spotting. It was therefore recommended to undergo D&C hysteroscopy to further evaluate. Risks of infection, bleeding, perforation, and possible pathology are reviewed. Patient voices understanding and agrees to proceed. Review of Systems Review of Systems: not repeated day of surgery; patient states no changes in status PMFSH Past Medical History Medical History (Updated 10/08/24 @ 08:40 by Genesis Barry MD) Interstitial cystitis Anxiety Eczema Back pain Ureteral calculus, right Surgical History Surgical History (Updated 10/08/24 @ 08:39 by Genesis Barry MD) History of lithotripsy History of hysteroscopy 2001, 2011, 2016, 2019 Status post tonsillectomy Social History Social History (Updated 06/28/21 @ 23:53 by Davonte AndersonMD) Smoking packs per day: 0.75 Smoking cigarettes per day: 15.0 Years smoked: 20 Smoking pack-years: 15.00 Smoking status: Former smoker Tobacco type: cigarettes Smoking end date: 09/28/94 Alcohol intake: current Alcohol use details: 2/MONTH Substance use: never Substance use type: does not use Living arrangements: with family Spiritual care concerns: No Meds Home Medications and Allergies Home Medications ?Medication ?Instructions ?Recorded ?Confirmed ?Type ibuprofen 800 mg tablet 800 mg PO TID PRN pain #30 tabs 06/29/21 09/28/24 Rx alprazolam 0.5 mg tablet 0.5 mg PO BID PRN Anxiety 06/30/21 09/28/24 History celecoxib 100 mg capsule 100 mg PO HS 09/28/24 09/28/24 History cholecalciferol (vitamin D3) 125 5,000 unit PO DAILY 09/28/24 09/28/24 History mcg (5,000 unit) tablet (Vitamin D3) estradiol 0.1 mg/24 hr semiweekly 1 patch topical .bi-weekly 09/28/24 09/28/24 History transdermal patch magnesium citrate 125 mg capsule 250 mg PO QPM 09/28/24 09/28/24 History medroxyprogesterone 2.5 mg tablet 2.5 mg PO HS 09/28/24 09/28/24 History multivitamin (Daily Multi-Vitamin 1 tablet PO DAILY 09/28/24 09/28/24 History tablet) omega-3 348 mg-dha 100 mg-epa 230 1 cap PO DAILY 09/28/24 09/28/24 History mg-fish 500 mg-coQ10 100 mg capsule (CoQmax [place]) vitamin K2 180 mcg capsule 180 mcg PO DAILY 09/28/24 09/28/24 History Allergies Allergy/AdvReac Type Severity Reaction Status Date / Time No Known Allergies Allergy Verified 09/28/24 10:04 Exam Const: General: healthy appearing and alert Orientation/consciousness: patient oriented x3 Resp: Effort & Inspection: normal respiratory effort : External Female Exam: normal external appearance Speculum Exam - Vagina: normal appearance of the vagina and normal vaginal discharge Speculum Exam - Cervix: normal appearance of the cervix Bimanual exam- vagina & uterus: uterine size normal and consistency normal Bimanual Exam- Adnexa, other: normal adnexae and No adnexal tenderness Neuro: General: patient oriented x3 Assessment and Plan Assessment and plan (1) Post-menopausal bleeding: Code(s): N95.0 - Postmenopausal bleeding Status: Acute Assessment and Plan: Plan to proceed with D&C hysteroscopy
[2024-10-08 12:10] VITALS: BMI 33.8
[2024-10-08] MEDS: LACTATED RINGERS 1,000 ML 30 ML IV CONT (12:30)
[2024-10-08 12:35] VITALS: BP 138/73; PULSE 72; RESP 18; TEMP 37.3; O2SAT 98
[2024-10-08] MEDS: ACETAMINOPHEN 500 MG TABLET 1000 MG PO (12:36)
--- NOTE | 2024-10-08 13:27 | P.PNAN_ITS ---
Anes - Initial Pre Proc Eval Procedure: Operation Date: 10/08/24 13:45 Proposed Procedures p Hysteroscopy Dilation and Curettage - Genesis Barry MD Date/Time: 10/08/24 13:27 Surgeon: Genesis Barry MD Pre Op Diagnosis: post menopausal bleeding Patient Data Age: 59 Gender: F Height: 1.7 m Weight: 98.1 kg Last Vital Signs Temp 37.3 C 10/08/24 12:35 Pulse 72 10/08/24 12:35 Resp 18 10/08/24 12:35 BP 138/73 10/08/24 12:35 Pulse Ox 98 10/08/24 12:35 O2 Del Method Room Air 10/08/24 12:35 Allergies Allergy/AdvReac Type Severity Reaction Status Date / Time No Known Allergies Allergy Verified 10/08/24 12:43 Home Medications ?Medication ?Instructions ?Recorded ?Confirmed ?Type ibuprofen 800 mg tablet 800 mg PO TID PRN pain #30 tabs 06/29/21 09/28/24 Rx alprazolam 0.5 mg tablet 0.5 mg PO BID PRN Anxiety 06/30/21 09/28/24 History celecoxib 100 mg capsule 100 mg PO HS 09/28/24 10/08/24 History cholecalciferol (vitamin D3) 125 5,000 unit PO DAILY 09/28/24 10/08/24 History mcg (5,000 unit) tablet (Vitamin D3) estradiol 0.1 mg/24 hr semiweekly 1 patch topical .bi-weekly 09/28/24 09/28/24 History transdermal patch magnesium citrate 125 mg capsule 250 mg PO QPM 09/28/24 10/08/24 History medroxyprogesterone 2.5 mg tablet 2.5 mg PO HS 09/28/24 10/08/24 History multivitamin (Daily Multi-Vitamin 1 tablet PO DAILY 09/28/24 10/08/24 History tablet) omega-3 348 mg-dha 100 mg-epa 230 1 cap PO DAILY 09/28/24 10/08/24 History mg-fish 500 mg-coQ10 100 mg capsule (CoQmax [place]) vitamin K2 180 mcg capsule 180 mcg PO DAILY 09/28/24 10/08/24 History Patient hx anesthesia problems: none Family hx anesthesia problems: none Results Review: All pre-operative results and documents have been reviewed as part of the pre- operative evaluation. [facility] Past Medical History Medical History Interstitial cystitis Anxiety Eczema Back pain Ureteral calculus, right Surgical History Surgical History History of lithotripsy History of hysteroscopy 2001, 2012, 2017, 2019 Status post tonsillectomy Social History Social History Smoking packs per day: 0.75 Smoking cigarettes per day: 15.0 Years smoked: 20 Smoking pack-years: 15.00 Smoking status: Former smoker Tobacco type: cigarettes Smoking end date: 09/28/94 Alcohol intake: current Alcohol use details: 2/MONTH Substance use: never Substance use type: does not use Living arrangements: with family Spiritual care concerns: No Anes - Eval Final PreProcedure Day of Procedure 10/08/24 13:27 Patient weight: obese Heart: regular rate and rhythm Lungs: clear to auscultation Airway: Mallampati scale class II Neurological: alert and oriented Last oral intake: >/= 8 hours ASA classification: III Emergent: no Anesthetic plan: proceed Anesthesia type and monitoring: general GIVS and standard monitoring Results Review: All pre-operative results and documents have been reviewed as part of the pre-operative evaluation. Informed Consent: The patient's anesthetic plan and its attendant risks and benefits were discussed with the patient/family/POA. Questions were solicited and answers provided to the satisfaction of the patient/family/POA.
--- NOTE | 2024-10-08 14:32 | P.OP_ITS ---
Procedure Note - Detailed Date of Procedure 10/08/24 Pre-op Diagnosis post menopausal bleeding Post-op Diagnosis Same Procedure Performed D&C hysteroscopy with polypectomy Surgeon Genesis Barry MD Anesthesia MAC Findings Uterus sounds to 7cm. There is a polyp the right cornua. The remainder of the endometrium appears atrophic. Description of Procedure The patient is taken to operating room and placed under anesthesia in the dorsal lithotomy position. She was prepped and draped in the usual sterile fashion. [place] speculum was placed in the vagina and the cervix grasped on the anterior lip with a tenaculum. The review cervix is stenotic and the sound will not pass. The Hegar dilator was used and it does pass internal os. The uterus was then sounded to 7cm. The diagnostic hysteroscope was placed and the above- stated findings were noted. The small Aveta resection device was used and the polyp was removed in its entirety. The hysteroscope was removed and the sharp curette used to curette the endometrium until a good uterine cry was noted in all areas. Instruments are removed. Sponge, needle, and instrument counts are correct per the OR staff. The patient was taken to recovery in stable condition. Estimated Blood Loss 5 Drains No Packing No Pathology Yes (Endometrial shavings and curettings) Complications No immediate complications Condition Stable Disposition PACU
[2024-10-08 14:36] VITALS: BP 152/81; PULSE 75; RESP 16; O2SAT 98
[2024-10-08] MEDS: oxyCODONE HCL (*CRX) 5 MG TAB IR PO (14:51)
[2024-10-08 15:05] VITALS: BP 162/74; PULSE 62; RESP 16
== END 2024-10-08 15:19 | disposition home or self-care (01) ==
PROVIDERS: Visit Provider Obstetrics & Gynecology Gynecology
PROC: 0U5B8ZZ Destruction of Endometrium, Via Natural or Artificial Opening Endoscopic (ICD-10-PCS; CPT 58563; principal; 2024-10-08 13:45)
DX: N84.0 Polyp of corpus uteri (principal); F41.9 Anxiety disorder, unspecified; E66.9 Obesity, unspecified; Z68.33 Body mass index [BMI] 33.0-33.9, adult; Z79.1 Long term (current) use of non-steroidal anti-inflammatories (NSAID); Z98.890 Other specified postprocedural states; Z87.442 Personal history of urinary calculi; Z87.891 Personal history of nicotine dependence
CPT/HCPCS: 58558; 88305; A9270; J2003; J2250; J2704; J3010; J7120

== ENCOUNTER 2024-10-18 13:17 | Outpatient (CLI) | payer OTHER, SELFPAY ==
--- NOTE | ~2024-10-18 | XR_ITS ---
XR abdomen/kub 1V 10/18/2024 13:28 Indication: Left renal stone Procedure: KUB Comparison: 10/19/2023 and 09/22/2022 Findings: There is a stone in the lower pole of the left kidney measuring 2 elevators. Bowel gas kal jeanine nonobstructive. Moderate colonic fecal loading. Lung bases unremarkable. No acute osseous abnorma lity. Impression: 1: Left nephrolithiasis. Reviewed, dictated and finalized at location B. Impression: 1: Left nephrolithiasis.
--- NOTE | ~2024-10-18 | US_ITS ---
US retroperitoneal comp Ordering provider: Annalisa Conrad PA-C History: . L renal stone . Comparison: None. Technique: Ultrasound bilateral kidneys. Findings: RIGHT KIDNEY: Measures 10.3x 3.8x 5.9 cm in length which is normal in size. No renal cysts. No renal mass or visualized echogenic stones. Otherwise, normal echotexture and contour. No hydronephrosis. No rmal renal cortical thickness. LEFT KIDNEY: Measures 11.2x 5.4x 6.2 cm in length which is normal in size. No renal cysts. No renal m ass or visualized echogenic stones. Otherwise, normal echotexture and contour. No hydronephrosis. Nor mal renal cortical thickness. BLADDER: Normal. IMPRESSION: Normal study. Reviewed, dictated and finalized at location A. IMPRESSION: Normal study.
== END 2024-10-18 13:18 | disposition home or self-care (01) ==
PROVIDERS: PCP Physician Assistant; Visit Provider Physician Assistant
DX: N20.0 Calculus of kidney (principal)
CPT/HCPCS: 74018; 76770